=== PATIENT | female | born 2000 | race Caucasian/White ===

== ENCOUNTER 2020-02-10 10:58 | Emergency (ER) | payer OTHER, SELFPAY ==
--- NOTE | ~2020-02-10 | XR_ITS ---
EXAMINATION: XR shoulder LT min 2V, XR humerus LT DATE: 02/10/2020 12:06 INDICATION: Left shoulder and proximal humeral pain. TECHNIQUE: 1. AP internally and externally rotated, AP oblique externally rotated and transscapular Y views of t he left shoulder were obtained. 2. AP and lateral views of the left humerus were obtained on overlapping proximal and distal images. COMPARISON: None FINDINGS: Normal alignment. No fracture. The left glenohumeral, acromioclavicular and elbow joint spaces are n ormal. No cortical erosions or periosteal reaction. No suspicious lytic or blastic bone lesions. Soft tissues are unremarkable. No left elbow joint effusion. Left lung is clear. IMPRESSION: Negative left shoulder and humerus radiographs. Reviewed, dictated and finalized at location A. IMPRESSION: Negative left shoulder and humerus radiographs.
[2020-02-10 11:00] VITALS: BP 151/85; PULSE 84; RESP 18; TEMP 36.9; O2SAT 100
--- NOTE | 2020-02-10 11:21 | PC.NURSE ---
EDINSON Mondragon at bedside for assessment.
--- NOTE | 2020-02-10 11:32 | ED.UPPEXIN ---
HPI - Extremity Injury (Upper) General Chief Complaint: Extremity Injury, Upper <Kirsten Navarro PA-C - Last Filed: 02/10/20 12:18> Stated Complaint: left shoulder/elbow pain - fell tues <EMBER Lawrence Last Filed: 02/10/20 12:18> Time Seen by Provider: 02/10/20 11:18 <EMBER Lawrence Last Filed: 02/10/20 12:18> Source: patient <EMBER Lawrence Last Filed: 02/10/20 12:18> Mode of arrival: ambulatory <EMBER Lawrence Last Filed: 02/10/20 12:18> Limitations: no limitations <EMBER Lawrence Last Filed: 02/10/20 12:18> History of Present Illness HPI narrative: This is a 19-year-old female that presents the emergency department for an injury 2 days ago with left shoulder pain. Reports she slipped while at work and fell. Reports her left hand went into the [place] at work. Reports she was seen at [facility] for this and has follow-up in the burn clinic tomorrow. Reports she was so focused on the hand at the time that she did not realize the shoulder was also bothering her. Has continued to have pain in left shoulder so presents for evaluation. Denies hitting her head, loss of consciousness, decreased range of motion or numbness. <Kirsten Navarro PA-C - Last Filed: 02/10/20 12:18> Related Data Home Medications: Home Medications Medication Instructions Recorded Confirmed hydrocodone-acetaminophen 1 tablet PO Q4H PRN 02/10/20 naproxen 500 mg PO BID 02/10/20 oxycodone-acetaminophen 1 tablet PO Q4H PRN 02/10/20 silver sulfadiazine 02/10/20 <EMBER Lawrence Last Filed: 02/10/20 12:18> Allergies/Adverse Reactions: Allergies Allergy/AdvReac Type Severity Reaction Status Date / Time coconut Allergy Difficulty Verified 02/10/20 11:24 Breathing fluticasone Allergy Difficulty Verified 02/10/20 11:24 [From Advair Diskus] Breathing latex Allergy Hives Verified 02/10/20 11:24 salmeterol Allergy Difficulty Verified 02/10/20 11:24 [From Advair Diskus] Breathing <Kirsten Navarro PA-C - Last Filed: 02/10/20 12:18> Review of Systems Review of Systems: Narrative: CONSTITUTIONAL: Denies fever MUSCULOSKELETAL: Reports joint pain, and myalgia. <Kirsten Navarro PA-C - Last Filed: 02/10/20 12:18> All systems reviewed & are unremarkable except as noted in HPI and below <Kirsten Navarro PA-C - Last Filed: 02/10/20 12:18> PMFSH Past Medical History Medical History: Medical History (Updated 02/10/20 @ 12:18 by Kirsten Navarro PA-C) History of asthma <Kirsten Navarro PA-C - Last Filed: 02/10/20 12:18> Social History Social History: Social History (Updated 02/10/20 @ 11:32 by Kirsten Navarro PA-C) Smoking status: Current some day smoker Gender identity (if verbalized by the patient): Female <Kirsten Navarro PA-C - Last Filed: 02/10/20 12:18> Exam Narrative: Exam Narrative: GENERAL: Well-appearing, well-nourished, and in no acute distress. HEAD: Normocephalic, atraumatic. EYES: EOMI. CHEST: Clear to auscultation. No respiratory distress. No wheezes rales or rhonchi HEART: Regular rate and rhythm. No murmur heard. Normal peripheral pulses. EXTREMITIES: Normal range of motion. No edema. Left hand and forearm with bandage in place that is clean, dry and intact SKIN: Warm, dry, no rash. NEURO: No focal deficits. Alert and oriented x3. PSYCH: Normal mood and affect <Kirsten Navarro PA-C - Last Filed: 02/10/20 12:18> Course Vital Signs Vital signs: Vital Signs Temperature 36.9 C 02/10/20 11:00 Pulse Rate 84 02/10/20 11:00 Respiratory Rate 18 02/10/20 11:00 Blood Pressure 151/85 H 02/10/20 11:00 Pulse Oximetry 100 02/10/20 11:00 Temperature 36.9 C 02/10/20 11:00 Pulse Rate 67 02/10/20 12:27 Respiratory Rate 18 02/10/20 12:27 Blood Pressure 151/85 H 02/10/20 11:00 Pulse Oximetry 100 02/10/20 12:27 <Kirsten Navarro PA-C - Last Filed: 02/10/20
--- NOTE | 2020-02-10 12:05 | PC.NURSE ---
pt returned from xray at this time, no current needs expressed.
[2020-02-10 12:27] VITALS: PULSE 67; RESP 18; O2SAT 100
== END 2020-02-10 12:30 | disposition home or self-care (01) ==
PROVIDERS: Emergency Provider Emergency Medicine
DX: M25.512 Pain in left shoulder (principal); J45.909 Unspecified asthma, uncomplicated; F17.200 Nicotine dependence, unspecified, uncomplicated; W01.0XXA Fall on same level from slipping, tripping and stumbling without subsequent striking against object, initial encounter
CPT/HCPCS: 73030; 73060; 99283

== ENCOUNTER 2021-12-10 21:28 | Emergency (ER) | payer OTHER, SELFPAY ==
[2021-12-10 21:49] VITALS: BP 130/71; PULSE 104; RESP 16; TEMP 36.5; O2SAT 100
--- NOTE | 2021-12-10 23:24 | PC.NURSE ---
Pt approached triage desk and states she is going to leave. Pt ambulated out of ED with steady gait, in no obvious distress.
== END 2021-12-10 23:24 | disposition left against medical advice (07) ==
LOC: ANHED 23:42
DX: R50.9 Fever, unspecified (principal)
CPT/HCPCS: 99199

== ENCOUNTER 2022-09-19 12:25 | Emergency (ER) | payer OTHER, SELFPAY ==
--- NOTE | ~2022-09-19 | US_ITS ---
US right upper quadrant INDICATION: Nausea and vomiting PROCEDURE: Realtime right upper abdominal ultrasound. COMPARISON: No prior studies for comparison. FINDINGS: The pancreas is normal without focal mass or pancreatic ductal dilation. Liver echotexture is increased, consistent with fatty infiltration. There is normal directional flow in the portal ve in. The gallbladder is normal without stones, gallbladder wall thickening or pericholecystic fluid. Comm on bile duct measures 5 mm. No sonographic Pollack's sign. IMPRESSION: 1: Hepatic steatosis. Reviewed, dictated and finalized at location A. X UNIX SYSTEM ADMINISTRATOR IMPRESSION: 1: Hepatic steatosis.
--- NOTE | ~2022-09-19 | US_ITS ---
EXAMINATION: US OB <= 14 weeks fetus DATE: 09/19/2022 17:52 INDICATION: Evaluate for gestational dates. TECHNIQUE: Real-time transabdominal obstetric ultrasound. FINDINGS: No prior studies for comparison. The uterus measures 10 x 6.1 x 6.4 cm. There is an intrauterine gestational sac, with pole iden tified. The crown rump length measures 1.69 cm, which correlates with a estimated gestational age of 8 weeks 1 day. heart tones are identified measuring 167 BPM. The ovaries are within normal l imits, although evaluation for vascularity of the ovaries is limited. IMPRESSION: 1. SL IUP with an EGA of 8 weeks, 1 days (EDC by current ultrasound of 04/30/2023). Reviewed, dictated and finalized at location A. CTION CONTROL MANAGER IMPRESSION: 1. SL IUP with an EGA of 8 weeks, 1 days (EDC by current ultrasound of 3).
[2022-09-19 12:41] VITALS: BP 149/90; PULSE 95; RESP 14; TEMP 36.8; O2SAT 98
--- NOTE | 2022-09-19 14:26 | ED.NAVMDI ---
HPI - Nausea/Vomiting/Diarrhea General Chief complaint: Nausea/Vomiting/Diarrhea Stated complaint: -nausea Time Seen by Provider: 09/19/22 14:10 History of Present Illness HPI Narrative: Patient is a 22-year-old G3, P2 female who is currently about 7 weeks by LMP here for evaluation of nausea, vomiting over the past week. Patient states that she is unable to keep any p.o. down. Was prescribed doxylamine by her TRAFFIC LAW ATTORNEY without relief. Denies any abdominal pain, fevers or chills, vaginal bleeding, sudden gush of fluids, diarrhea or constipation. Denies history of previous with other pregnancies. Related Data Home Medications Medication Instructions Recorded Confirmed hydrocodone 5 mg-acetaminophen 325 1 tablet PO Q4H PRN Pain 02/10/20 mg tablet naproxen 500 mg tablet 500 mg PO BID 02/10/20 oxycodone-acetaminophen 5 mg-325 1 tablet PO Q4H PRN Pain 02/10/20 mg tablet silver sulfadiazine 02/10/20 Allergies Allergy/AdvReac Type Severity Reaction Status Date / Time coconut Allergy Difficulty Verified 09/19/22 12:26 Breathing fluticasone Allergy Difficulty Verified 09/19/22 12:26 [From Advair Diskus] Breathing latex Allergy Hives Verified 09/19/22 12:26 salmeterol Allergy Difficulty Verified 09/19/22 12:26 [From Advair Diskus] Breathing Review of Systems Review of Systems: Gen.: Denies fevers or chills Eyes: Denies eye pain or visual change ENT: Denies congestion Respiratory: Denies shortness of breath or cough CV: Denies chest pain or palpitations GI: Reports nausea and vomiting. denies burning, urgency, frequency or hematuria Musculoskeletal: Denies back pain or muscle pain Neuro: Denies numbness, tingling, weakness or focal weakness Skin: Denies rash Except as documented, all other systems reviewed and negative [facility] Past Medical History Medical History History of asthma Social History Social History (Updated 02/10/20 @ 11:32 by Kirsten Navarro PA-C) Smoking status: Current some day smoker Gender identity (if verbalized by the patient): Female Exam Narrative: APPEARANCE: Well appearing, no pain in distress, well-nourished. Head: Normocephalic and atraumatic. EYES: PERRLA/EOMI, conjunctivae clear NOSE: No nasal drainage EARS: External ear normal in appearance THROAT: Oropharynx is clear. Mucous membranes are moist. NECK: Supple. No adenopathy, no masses. RESPIRATORY: Airway patent, respirations nonlabored. Clear to auscultation bilaterally, no rales, rhonchi, wheezing. CARDIOVASCULAR: Regular rate and rhythm without murmurs, rubs, or gallops. ABDOMINAL: Normoactive bowel sounds. Soft, nontender, nondistended. No rebound tenderness or guarding. MUSCULOSKELETAL: Extremities are warm and well-perfused. Moves all extremities well. No edema. NEURO: Normal speech. No focal neurologic deficits. SKIN: Skin is warm and dry. No rashes. PSYCHIATRIC: Normal affect/mood.. Course Vital Signs Vital signs: Vital Signs Temperature 98.3 F 09/19/22 12:41 Pulse Rate 95 09/19/22 12:41 Respiratory Rate 14 09/19/22 12:41 Blood Pressure 149/90 H 09/19/22 12:41 Pulse Oximetry 98 09/19/22 12:41 Oxygen Delivery Room Air 09/19/22 12:41 Temperature 98.4 F 09/19/22 15:35 Pulse Rate 80 09/19/22 18:14 Respiratory Rate 17 09/19/22 18:14 Blood Pressure 123/85 09/19/22 18:14 Pulse Oximetry 100 09/19/22 18:14 Oxygen Delivery Room Air 09/19/22 12:41 MDM - Nausea/Vomiting/Diarrhea MDM Narrative Medical decision making narrative: 22-year-old female here for evaluation of nausea and vomiting over the past week, currently about 8 weeks by last menstrual cycle. She is nontoxic in appearance and has no abdominal tenderness on exam. heart tones were not detected at bedside but she does have a quant of 51,000. Pelvic ultrasound shows single live intrauterine gest
[2022-09-19 15:02] LABS: Appearance Urine Slightly Cloudy (Clear); Bilirubin Urine 1+ (Negative); Blood Urine Negative (Negative); Color Urine Yellow (Yellow); Glucose Urine UA Negative (Negative); Ketones Urine Negative (Negative); Leukocyte Esterase Ur Negative LEU/UL (Negative); Nitrate Urine Negative (Negative); Protein Urine Negative (Negative); Specific Grav Ur 1.025 (1.001-1.035); pH Urine 8.5 (5.0-9.0)
[2022-09-19 15:09] LABS: Bacteria Urine Trace /hpf; Mucus Urine Rare /lpf; Squamous Epithelial Cell Urine Many /hpf (Few)
[2022-09-19 15:10] LABS: Add Urine Microscopic? YES
[2022-09-19] MEDS: LACTATED RINGERS 1,000 ML 999 ML IV CONT ×2 (15:19→16:09)
[2022-09-19] MEDS: METOCLOPRAMIDE HCL INJ 10 MG/2 ML VIAL IV PUSH (15:20)
[2022-09-19 15:31] LABS: Basophils Absolute Auto 0.1 K/mm3 (0.0-0.1); Basophils Percent Auto 0.5 % (0.2-1.2); Eosinophils Absolute Auto 0.3 K/mm3 (0-0.3); Eosinophils Percent Auto 1.9 % (0-4.4); Hematocrit 40.1 % (37.0-47.0); Hemoglobin 12.5 g/dL (12.0-15.0); Immature Granulocyte Absolute 0.03 K/mm3 (0.00-0.031); Immature Granulocyte Percent A 0.2 % (0-0.5); Lymphocytes Absolute Auto 3.47 K/mm3 (0.9-3.2); Lymphocytes Percent Auto 25.1 % (18.3-44.2); Mean Corpuscular HGB Conc 31.2 g/dl (32-36); Mean Corpuscular Hemoglobin 25.8 pg (26-34); Mean Corpuscular Volume 82.9 fl (80-100); Mean Platelet Volume 10.9 fl (7.4-10.4); Monocytes Absolute Auto 0.8 K/mm3 (0.1-0.6); Monocytes Percent Auto 5.4 % (2.6-8.5); Neutrophils Absolute Auto 9.3 K/mm3 (1.3-6.7); Neutrophils Percent Auto 66.9 % (45.5-73.1); Platelet Count Result 328 k/mm3 (150-375); Red Blood Count 4.84 M/mm3 (4.2-5.4); Red Cell Distribution Width 15.2 % (11.5-14.5); White Blood Count 13.8 K/mm3 (4.5-10.0)
[2022-09-19 15:35] VITALS: BP 134/71; PULSE 88; RESP 15; TEMP 36.9; O2SAT 100
[2022-09-19 15:42] LABS: Alanine Aminotransferase 120 U/L (6-35); Albumin Level 4.6 g/dL (3.5-5.1); Alkaline Phosphatase 132 U/L (38-126); Anion Gap 4 mmol/L (8-16); Aspartate Amino Transferase 88 U/L (14-36); Bilirubin,Total 0.5 mg/dL (0.2-1.3); Blood Urea Nitrogen 9 mg/dL (7-17); Calcium 9.4 mg/dL (8.4-10.2); Carbon Dioxide 30 mmol/L (22-30); Chloride 100 mmol/L (98-107); Estimated CRCL calculation 172 ml/min; Estimated Glomerular Filt Rate > 60; Glucose 87 mg/dL (65-110); Sodium 134 mmol/L (137-145)
[2022-09-19 18:14] VITALS: BP 123/85; PULSE 80; RESP 17; O2SAT 100
== END 2022-09-19 18:21 | disposition home or self-care (01) ==
PROVIDERS: Emergency Provider Physician Assistant
DX: O99.611 Diseases of the digestive system complicating pregnancy, first trimester (principal); K76.0 Fatty (change of) liver, not elsewhere classified; O99.511 Diseases of the respiratory system complicating pregnancy, first trimester; J45.909 Unspecified asthma, uncomplicated; O99.331 Smoking (tobacco) complicating pregnancy, first trimester; F17.200 Nicotine dependence, unspecified, uncomplicated; Z3A.08 8 weeks gestation of pregnancy
CPT/HCPCS: 36415; 76705; 76801; 80053; 81001; 81025; 84702; 85025; 96361; 96374; 99284; J2765; J7120

== ENCOUNTER 2022-10-11 11:52 | Emergency (ER) | payer OTHER, SELFPAY ==
--- NOTE | ~2022-10-11 | US_ITS ---
Limited Abdominal Sonogram: Real-time sonographic imaging of the right upper quadrant was performed. Clinical History: Right upper quadrant pain Findings: The liver appears normal with no evidence of mass lesion or bile duct dilatation. Main por roscoe vein demonstrates normal direction of flow. The gallbladder is well distended, with possible mini mal sludge. No gallbladder wall thickening. The common bile duct measures 5 mm. The visualized pancr eas, aorta, and IVC are unremarkable. Impression: Possible minimal gallbladder sludge. Reviewed, dictated and finalized at location M. CLE UPHOLSTERER Impression: Possible minimal gallbladder sludge.
[2022-10-11 11:57] VITALS: BP 132/86; PULSE 92; RESP 18; TEMP 36.6; O2SAT 100
--- NOTE | 2022-10-11 13:15 | ED.ABDPAIN ---
HPI - Abdominal Pain General Chief Complaint: Abdominal Pain Stated Complaint: 11 weeks preg/ruq pain Time Seen by Provider: 10/11/22 12:26 History of Present Illness HPI narrative: Patient is a 22-year-old G3, P2 female at approximately 11 weeks gestation presenting with right upper quadrant pain. Patient states that for the last day she has had a stabbing pain in her right upper quadrant associated with vomiting. Patient states that she has had a lot of morning sickness with this but she has not been able to keep anything down for the last day. States that she was seen here a few weeks ago and told that she had gallstones and to come back if she had pain in this area. States that she had a small amount of diarrhea yesterday. Denies dysuria or hematuria, vaginal discharge or bleeding. Denies fevers, headache, chest pain, shortness of breath, cough. Related Data Home Medications Medication Instructions Recorded Confirmed hydrocodone 5 mg-acetaminophen 325 1 tablet PO Q4H PRN Pain 02/10/20 mg tablet naproxen 500 mg tablet 500 mg PO BID 02/10/20 oxycodone-acetaminophen 5 mg-325 1 tablet PO Q4H PRN Pain 02/10/20 mg tablet silver sulfadiazine 02/10/20 Allergies Allergy/AdvReac Type Severity Reaction Status Date / Time coconut Allergy Difficulty Verified 09/19/22 12:26 Breathing fluticasone Allergy Difficulty Verified 09/19/22 12:26 [From Advair Diskus] Breathing latex Allergy Hives Verified 09/19/22 12:26 salmeterol Allergy Difficulty Verified 09/19/22 12:26 [From Advair Diskus] Breathing Review of Systems Review of Systems: All systems reviewed & are unremarkable except as noted in HPI and below PMFSH Past Medical History Medical History History of asthma Social History Social History Smoking status: Current some day smoker Gender identity (if verbalized by the patient): Female Exam Narrative: GENERAL: Well-appearing, well-nourished, and in no acute distress. HEAD: Normocephalic, atraumatic. EYES: PERRLA and EOMI. ENT: Nares clear, no rhinorrhea or epistaxis. Mucous membranes moist. NECK: Supple. CHEST: Clear to auscultation. No respiratory distress. HEART: Regular rate and rhythm. ABDOMEN: Soft, mild right upper quadrant tenderness, no guarding or rebound EXTREMITIES: Normal range of motion. No edema. SKIN: Warm, dry, no rash. NEURO: No focal deficits. Alert and oriented x3. PSYCH: Normal mood and affect. Course Vital Signs Vital signs: Vital Signs Temperature 97.9 F 10/11/22 11:57 Pulse Rate 92 10/11/22 11:57 Respiratory Rate 18 10/11/22 11:57 Blood Pressure 132/86 10/11/22 11:57 Pulse Oximetry 100 10/11/22 11:57 Oxygen Delivery Room Air 10/11/22 11:57 Temperature 97.9 F 10/11/22 11:57 Pulse Rate 92 10/11/22 11:57 Respiratory Rate 18 10/11/22 11:57 Blood Pressure 132/86 10/11/22 11:57 Pulse Oximetry 100 10/11/22 11:57 Oxygen Delivery Room Air 10/11/22 11:57 MDM - Abdominal Pain MDM Narrative Medical decision making narrative: Patient is a 22-year-old female at 11 weeks gestation presenting with right upper quadrant pain and vomiting. Vitals within normal limits. Patient is nontoxic and in no acute distress. Exam is remarkable for mild right upper quadrant tenderness. Plan for labs, right upper quadrant ultrasound, IV Tylenol and fluids. Blood work with mild leukocytosis which is similar to prior levels. Blood work is otherwise unremarkable. Normal renal function and electrolytes. UA is contaminated. Patient denies any urinary symptoms. Right upper quadrant ultrasound shows no acute abnormalities. On reevaluation, the patient states that she feels improved. She is tolerating p.o. intake. Do not feel further imaging is warranted given the reassuring ultrasound and improvement in her sympto
[2022-10-11] MEDS: SODIUM CHLORIDE 0.9% IV 1,000 ML 999 ML IV CONT (13:47)
[2022-10-11] MEDS: ONDANSETRON INJ 4 MG/2 ML VIAL IV PUSH (13:49)
[2022-10-11 13:52] LABS: Basophils Percent Auto 0.3 % (0.2-1.2); Eosinophils Absolute Auto 0.1 K/mm3 (0-0.3); Eosinophils Percent Auto 0.4 % (0-4.4); Hematocrit 39.5 % (37.0-47.0); Hemoglobin 12.5 g/dL (12.0-15.0); Immature Granulocyte Absolute 0.04 K/mm3 (0.00-0.031); Immature Granulocyte Percent A 0.3 % (0-0.5); Lymphocytes Percent Auto 20.1 % (18.3-44.2); Mean Corpuscular HGB Conc 31.6 g/dl (32-36); Mean Corpuscular Hemoglobin 26.4 pg (26-34); Mean Corpuscular Volume 83.5 fl (80-100); Mean Platelet Volume 10.9 fl (7.4-10.4); Monocytes Absolute Auto 0.6 K/mm3 (0.1-0.6); Monocytes Percent Auto 4.7 % (2.6-8.5); Neutrophils Percent Auto 74.2 % (45.5-73.1); Platelet Count Result 237 k/mm3 (150-375); Red Blood Count 4.73 M/mm3 (4.2-5.4); Red Cell Distribution Width 15.7 % (11.5-14.5); White Blood Count 13.4 K/mm3 (4.5-10.0)
[2022-10-11 14:20] LABS: Appearance Urine Turbid (Clear); Bacteria Urine 1+ /hpf; Bilirubin Urine 1+ (Negative); Blood Urine Negative (Negative); Color Urine Dark Yellow (Yellow); Glucose Urine UA Negative (Negative); Ketones Urine 4+ mg/dL (Negative); Leukocyte Esterase Ur 1+ LEU/UL (Negative); Need Manual Microscopic Reviewed; Nitrate Urine Negative (Negative); Protein Urine 1+ mg/dL (Negative); Specific Grav Ur 1.032 (1.001-1.035); Squamous Epithelial Cell Urine Many /hpf (Few); pH Urine 5.5 (5.0-9.0)
[2022-10-11 14:34] LABS: Add Urine Microscopic? YES
[2022-10-11] MEDS: LACTATED RINGERS 1,000 ML 999 ML IV CONT (14:49)
[2022-10-11 15:33] LABS: Alanine Aminotransferase 40 U/L (6-35); Albumin Level 4.2 g/dL (3.5-5.1); Alkaline Phosphatase 140 U/L (38-126); Anion Gap 6 mmol/L (8-16); Aspartate Amino Transferase 32 U/L (14-36); Bilirubin,Total 0.8 mg/dL (0.2-1.3); Blood Urea Nitrogen 7 mg/dL (7-17); Carbon Dioxide 24 mmol/L (22-30); Chloride 104 mmol/L (98-107); Estimated Glomerular Filt Rate > 60; Glucose 94 mg/dL (65-110); Lipase 39 U/L (23-300); Potassium 3.8 mmol/L (3.4-5.0); Sodium 134 mmol/L (137-145)
== END 2022-10-11 17:10 | disposition home or self-care (01) ==
PROVIDERS: Emergency Provider Emergency Medicine
DX: O21.0 Mild hyperemesis gravidarum (principal); Z3A.11 11 weeks gestation of pregnancy; R10.11 Right upper quadrant pain
CPT/HCPCS: 36415; 76705; 80053; 81001; 81025; 83690; 85025; 87086; 96361; 96365; 96375; 99284; J0131; J2405; J7030; J7120

== ENCOUNTER 2022-11-24 11:32 | Emergency (ER) | payer OTHER, SELFPAY ==
[2022-11-24 11:49] VITALS: BP 146/79; PULSE 87; RESP 18; TEMP 37; O2SAT 100
--- NOTE | 2022-11-24 11:49 | PC.NURSE ---
in br to obtain ua spec.
--- NOTE | 2022-11-24 12:02 | ED.FEMALEGU ---
HPI - Female Genitourinary General Chief complaint: Urogenital-Female Stated complaint: uti Time Seen by Provider: 11/24/22 12:02 Source: patient Mode of arrival: ambulatory Limitations: no limitations History of Present Illness HPI Narrative: 22-year-old female presents with complaint of nausea and vomiting for 3 days. Patient is approximately 17 weeks. Reports that she has had some lower abdominal cramping, worse to right side. Began having low back pain 2 days ago. Assume that it was related to a urinary tract infection. States she has been drinking a lot of Dr. Post because is helping with nausea. Denies fever. Her OBGYN is [facility]. Reports that WBC has been elevated on her labs. Has had 2 ultrasounds of her gallbladder but both have been normal. This is patient's 3rd and she reports that it is the worst as far as nausea and vomiting. All systems reviewed and negative except as noted above. Review of Systems Review of Systems: CONSTITUTIONAL: Denies fever, chills, or sweats. EYES: Denies visual changes, redness, or discharge. ENT: Denies rhinorrhea, congestion, sore throat, or otalgia. CARDIOVASCULAR: Denies chest pain, palpitations, or edema. RESPIRATORY: Denies cough or dyspnea. GASTROINTESTINAL: Denies abdominal pain . Reports nausea, vomiting GENITOURINARY: Denies dysuria or hematuria. SKIN: Denies rash or itching. MUSCULOSKELETAL: Denies joint pain, or myalgia. reports low back pain. NEUROLOGIC: Denies headache, numbness, or weakness. PSYCHIATRIC: Denies anxiety or depression. All other systems reviewed are negative, except as documented in HPI. PMFSH Comments At time of signature, agree with nursing past medical, surgical, social and family history. There is no relevant family history pertinent to the presenting complaint. Exam Narrative: GENERAL: This is a well-nourished, well-developed patient, in no apparent distress. HEAD: normocephalic, atraumatic. EYES: PERRL. Sclera clear/white. Vision is grossly intact. EARS: External ears normal NOSE: External nose normal NECK: Neck supple, non-tender without lymphadenopathy, masses or thyromegaly. CARDIOVASCULAR: Regular rate and rhythm without murmurs, gallops, or rubs. RESPIRATORY: Clear to auscultation. Breath sounds equal bilaterally. No wheezes, rales, or rhonchi. SKIN: warm, Dry, intact with no suspicious lesions or rash, good texture and turgor. NEURO: awake, alert, and oriented to person, place and time. There were no obvious focal neurologic abnormalities. EXTREMITIES: No joint tenderness, effusion, or edema noted. Course Course Level of Care: Express Care Visit Vital Signs Vital signs: Vital Signs Temperature 37.0 C 11/24/22 11:49 Pulse Rate 87 11/24/22 11:49 Respiratory Rate 18 11/24/22 11:49 Blood Pressure 146/79 H 11/24/22 11:49 Pulse Oximetry 100 11/24/22 11:49 Oxygen Delivery Room Air 11/24/22 11:49 Temperature 37.0 C 11/24/22 11:49 Pulse Rate 87 11/24/22 11:49 Respiratory Rate 18 11/24/22 11:49 Blood Pressure 146/79 H 11/24/22 11:49 Pulse Oximetry 100 11/24/22 11:49 Oxygen Delivery Room Air 11/24/22 11:49 Reviewed Transfer Transfered to: [facility]: Other ( private car with ) Transfer rationale: nausea vomiting for 3 days. Urinalysis 4+ ketones, 2+ protein, uro bili 4+. Patient needs IV fluids. 17 weeks . Accepting physician: Ciara NEVES MDM - Female Genitourinary MDM Narrative Medical decision making narrative: Patient is aware of diagnosis, understands and agrees to treatment plan. Anticipatory guidance given. Patient agrees to follow-up as directed and is aware of reasons to seek care at the emergency department. Portions of this record may have been created with voice recognition software Lab Data Labs: Urine Glucose Trace Reference Range: Negative
== END 2022-11-24 12:13 | disposition short-term general hospital (02) ==
PROVIDERS: Emergency Provider Nurse Practitioner Family
DX: O21.9 Vomiting of pregnancy, unspecified (principal); Z3A.17 17 weeks gestation of pregnancy; O99.891 Other specified diseases and conditions complicating pregnancy; R82.4 Acetonuria
CPT/HCPCS: 81003; 99212; G0463

== ENCOUNTER 2022-11-24 12:29 | Emergency (ER) | payer OTHER, SELFPAY ==
[2022-11-24] VITALS (8 sets, daily range): BP systolic 111–142; BP diastolic 67–89; PULSE 68–94; RESP 16–20; TEMP 36.7; O2SAT 98–100
[2022-11-24] MEDS: SODIUM CHLORIDE 0.9% IV 1,000 ML 999 ML IV CONT (13:15)
[2022-11-24] MEDS: ONDANSETRON INJ 4 MG/2 ML VIAL IV PUSH (13:15)
[2022-11-24 13:21] LABS: Basophils Percent Auto 0.3 % (0.2-1.2); Eosinophils Absolute Auto 0.1 K/mm3 (0-0.3); Hematocrit 37.1 % (37.0-47.0); Immature Granulocyte Absolute 0.06 K/mm3 (0.00-0.031); Immature Granulocyte Percent A 0.5 % (0-0.5); Lymphocytes Absolute Auto 2.71 K/mm3 (0.9-3.2); Lymphocytes Percent Auto 22.4 % (18.3-44.2); Mean Corpuscular HGB Conc 32.3 g/dl (32-36); Mean Corpuscular Hemoglobin 27.1 pg (26-34); Mean Corpuscular Volume 83.9 fl (80-100); Mean Platelet Volume 11.2 fl (7.4-10.4); Monocytes Absolute Auto 0.6 K/mm3 (0.1-0.6); Neutrophils Absolute Auto 8.6 K/mm3 (1.3-6.7); Neutrophils Percent Auto 70.8 % (45.5-73.1); Platelet Count Result 234 k/mm3 (150-375); Red Blood Count 4.42 M/mm3 (4.2-5.4); Red Cell Distribution Width 15.2 % (11.5-14.5); White Blood Count 12.1 K/mm3 (4.5-10.0)
[2022-11-24 13:33] LABS: Alanine Aminotransferase 27 U/L (6-35); Alkaline Phosphatase 154 U/L (38-126); Anion Gap 7 mmol/L (8-16); Aspartate Amino Transferase 26 U/L (14-36); Bilirubin,Total 1.5 mg/dL (0.2-1.3); Blood Urea Nitrogen 6 mg/dL (7-17); Calcium 9.1 mg/dL (8.4-10.2); Carbon Dioxide 25 mmol/L (22-30); Chloride 104 mmol/L (98-107); Estimated CRCL calculation 204 ml/min; Estimated Glomerular Filt Rate > 60; Glucose 85 mg/dL (65-110); Potassium 3.9 mmol/L (3.4-5.0); Sodium 136 mmol/L (137-145)
[2022-11-24 14:31] LABS: Appearance Urine Turbid (Clear); Bacteria Urine 4+ /hpf; Bilirubin Urine 3+ (Negative); Blood Urine Negative (Negative); Color Urine Dark Yellow (Yellow); Glucose Urine UA Negative (Negative); Ketones Urine 4+ mg/dL (Negative); Leukocyte Esterase Ur 1+ LEU/UL (Negative); Nitrate Urine Positive (Negative); Non Pathogenic Casts 0-2; Protein Urine 2+ mg/dL (Negative); Squamous Epithelial Cell Urine Many /hpf (Few); WBC Urine 51-100 /hpf
[2022-11-24 14:34] LABS: Specific Grav Ur 1.036 (1.001-1.035)
[2022-11-24 14:36] LABS: Add Urine Microscopic? YES
--- NOTE | 2022-11-24 16:07 | ED.NAVMDI ---
HPI - Nausea/Vomiting/Diarrhea General Chief complaint: Nausea/Vomiting/Diarrhea Stated complaint: vomiting Time Seen by Provider: 11/24/22 12:52 History of Present Illness HPI Narrative: Patient is a 22-year-old female who presents ER with nausea and vomiting. Ongoing for the last days. Associate with low backache. Denies urinary frequency urgency or dysuria. No vaginal bleeding. She is currently 16 weeks gestation[address] states Dr[address] Meera Singh. Related Data Allergies Allergy/AdvReac Type Severity Reaction Status Date / Time coconut Allergy Other Verified 11/24/22 12:30 latex Allergy Other Verified 11/24/22 12:30 Review of Systems Constitutional: Constitutional: Denies chills and Denies fever(s) Gastrointestinal: Gastrointestinal: Denies abdominal pain, Reports nausea and Reports vomiting Genitourinary: Genitourinary: Denies hematuria, Denies nocturia and Denies dysuria Musculoskeletal: Musculoskeletal: Reports back pain, Denies arthralgias and Denies joint swelling PMF Past Medical History Medical History (Updated 11/24/22 @ 16:17 by Koffi Avila MD) Healthy female adult Surgical History Surgical History (Updated 11/24/22 @ 16:17 by Koffi Avila MD) No pertinent past surgical history Exam Narrative: GENERAL: Well-appearing, morbidly obese, and in no acute distress. HEAD: Normocephalic, atraumatic. ENT: Mucous membranes moist. CHEST: Clear to auscultation. No respiratory distress. HEART: Regular rate and rhythm. Normal peripheral pulses. ABDOMEN: Soft, nontender, nondistended. EXTREMITIES: Normal range of motion. No edema. SKIN: Warm, dry, no rash. NEURO: Alert and oriented x3. PSYCH: Normal mood and affect. Course Course Emergency Course: Patient resting comfortably. Informed of results. Feels improved with fluids and antiemetics. Will discharge with antibiotics and Zofran. Vital Signs Vital signs: Vital Signs Temperature 98.0 F 11/24/22 12:44 Pulse Rate 84 11/24/22 12:44 Respiratory Rate 16 11/24/22 12:44 Blood Pressure 127/75 11/24/22 12:44 Pulse Oximetry 100 11/24/22 12:44 Oxygen Delivery Room Air 11/24/22 12:44 Temperature 98.0 F 11/24/22 12:44 Pulse Rate 78 04/23/23 14:02 Respiratory Rate 18 11/24/22 14:02 Blood Pressure 128/89 11/24/22 14:02 Pulse Oximetry 99 11/24/22 14:02 Oxygen Delivery Room Air 11/24/22 12:44 MDM - Nausea/Vomiting/Diarrhea Lab Data 11/24/22 13:15 11/24/22 13:15 Labs: Lab Results 11/24/22 11/24/22 11/24/22 Range/Units 13:15 13:15 14:20 WBC 12.1 H (4.5-10.0) K/mm3 RBC 4.42 (4.2-5.4) M/mm3 Hgb 12.0 (12.0-15.0) g/dL Hct 37.1 (37.0-47.0) % MCV 83.9 (80-100) fl MCH 27.1 (26-34) pg MCHC 32.3 (32-36) g/dl RDW 15.2 H (11.5-14.5) % Plt Count 234 (150-375) k/mm3 MPV 11.2 H (7.4-10.4) fl Immature Gran % (Auto) 0.5 (0-0.5) % Neut % (Auto) 70.8 (45.5-73.1) % Lymph % (Auto) 22.4 (18.3-44.2) % Mcmullen % (Auto) 5.0 (2.6-8.5) % Eos % (Auto) 1.0 (0-4.4) % Baso % (Auto) 0.3 (0.2-1.2) % Lymph # (Auto) 2.71 (0.9-3.2) K/mm3 Mcmullen # (Auto) 0.6 (0.1-0.6) K/mm3 Eos # (Auto) 0.1 (0-0.3) K/mm3 Baso # (Auto) 0.0 (0.0-0.1) K/mm3 Abs Immat Gran (auto) 0.06 H (0.00-0.031) K/mm3 Absolute Neuts (auto) 8.6 H (1.3-6.7) K/mm3 Absolute Nucleated RBC 0.0 (0.0-0.012) K/mm3 Nucleated RBC % 0.0 (0.0-0.2) % Sodium 136 L (137-145) mmol/L Potassium 3.9 (3.4-5.0) mmol/L Chloride 104 (98-107) mmol/L Carbon Dioxide 25 (22-30) mmol/L Anion Gap 7 L (8-16) mmol/L BUN 6 L (7-17) mg/dL Creatinine 0.50 L (0.7-1.0) mg/dL Estim Creat Clear Calc 204 ml/min Estimated GFR > 60 (59 - ) Glucose 85 (65-110) mg/dL Calcium 9.1 (8.4-10.2) mg/dL Total Bilirubin 1.5 H (0.2-1.3) mg/dL AST 26 (14-36) U/L ALT 27 (6-35) U/L Alkaline Phosp
== END 2022-11-24 16:39 | disposition home or self-care (01) ==
PROVIDERS: Emergency Provider Emergency Medicine
DX: N39.0 Urinary tract infection, site not specified (principal); R11.2 Nausea with vomiting, unspecified
CPT/HCPCS: 36415; 80053; 81001; 81003; 85025; 87086; 87088; 96361; 96374; 99284; J2405; J7030

== ENCOUNTER 2023-03-10 10:17 | Outpatient (RCR) | payer OTHER, SELFPAY ==
[2023-03-10 11:08] VITALS: BP 109/40; PULSE 92
== END 2023-05-14 11:46 | disposition home or self-care (01) ==
LOC: ANHOBOP 10:17
PROVIDERS: Visit Provider Obstetrics & Gynecology
DX: O36.8130 Decreased fetal movements, third trimester, not applicable or unspecified (principal); Z3A.32 32 weeks gestation of pregnancy
CPT/HCPCS: 59025

== ENCOUNTER 2023-04-24 06:44 | Inpatient (IN) | payer OTHER, SELFPAY ==
[2023-04-24] VITALS (218 sets, daily range): BP systolic 84–148; BP diastolic 37–104; PULSE 69–164; TEMP 35.6–36.6; O2SAT 86–100; BMI 56.7
--- NOTE | 2023-04-24 07:04 | PM.IMHP ---
H&P: HPI History of Present Illness Date/Time: 04/24/23 07:04 Chief Complaint: Induction of labor at term Narrative: 23-year-old 3 para 2 whose last menstrual period was 08/14/2022, EDC is 04/30/2023, confirmed by 11 week ultrasound presents at 39 and half weeks gestation for induction of labor. Her has been unremarkable. She is negative for group B strep. The cervix is favorable PMFSH Past Medical History Medical History Healthy female adult History of asthma Surgical History Surgical History No pertinent past surgical history Family History Family History Other Cancer Diabetes mellitus Social History Social History Smoking status: Current some day smoker Substance use: current Gender identity (if verbalized by the patient): Female Spiritual care concerns: No Meds Home Medications and Allergies Home Medications Medication Instructions Recorded Confirmed Type ondansetron 4 mg disintegrating 4 mg PO Q6H PRN nausea and 11/24/22 Rx tablet vomiting #10 tabs vits no.126-ferrous fum 1 tablet PO DAILY 04/23/23 04/23/23 History 28 mg iron-folic acid 800 mcg tablet (Classic ) Allergies Allergy/AdvReac Type Severity Reaction Status Date / Time coconut Allergy Other Verified 04/23/23 12:40 fluticasone Allergy Difficulty Verified 04/23/23 12:40 [From Advair Diskus] Breathing latex Allergy Other Verified 04/23/23 12:40 salmeterol Allergy Difficulty Verified 04/23/23 12:40 [From Advair Diskus] Breathing Exam Const: General: cooperative, healthy appearing and comfortable Nutritional Appearance: obese Orientation/consciousness: oriented to person, oriented to place and oriented to time HENMT: Head: normal to inspection Resp: Effort & Inspection: normal respiratory effort Cardio: Rate: regular rate Rhythm: regular rhythm Heart sounds: S1 normal heart sound present and S2 normal heart sound present GI: Inspection: normal to inspection ( gravid soft uterus) Auscultation: normal bowel sounds : External Female Exam: normal external appearance Speculum Exam - Vagina: normal appearance of the vagina Speculum Exam - Cervix: normal appearance of the cervix ( . FHTs were reassuring) Assessment and Plan Assessment and plan (1) Term : Code(s): Z34.90 - Encounter for supervision of normal , unspecified, unspecified trimester Status: Acute Plan medical induction of labor. Spontaneous vaginal delivery expected. She has an epidural candidate
--- NOTE | 2023-04-24 07:08 | LDADM ---
This patient, Linda Wang, was admitted to Labor/Delivery/Recovery 102 on 04/24/23 at 06:44. Plans for labor, pain management and were discussed with patient. Patient/family oriented to hospital policies and general routines including ID bracelet, bed and alarms, visiting hours, pain management, procedures, bathroom and other care routines, personal items, smoking policy, room service/diet and guest tray routines, security routines, and visiting hours. Patient/Family are encouraged to report perceived risks to care and to ask questions if they do not understand what they are told or what they should do. See OBIX for further documentation.
--- NOTE | 2023-04-24 07:19 | PM.OBPNLAB ---
Pain Control Date/time seen: 04/24/23 07:19 Pain control: tolerating well Pelvic Exam Dilation (cm): 3 Effacement (%): 50 station: -2 Comments: Attempted AROM with no fluid. IUPC placed. FHTs reassuring
[2023-04-24] MEDS: LACTATED RINGERS 1,000 ML 125 ML IV CONT ×3 (07:51→23:26)
[2023-04-24] MEDS: OXYTOCIN 30 UNITS/NS 500 ML 30 UNITS/500 ML BAG IV CONT (08:00)
[2023-04-24 08:19] LABS: Basophils Percent Auto 0.4 % (0.2-1.2); Eosinophils Absolute Auto 0.2 K/mm3 (0-0.3); Eosinophils Percent Auto 1.8 % (0-4.4); Hemoglobin 9.5 g/dL (12.0-15.0); Immature Granulocyte Absolute 0.03 K/mm3 (0.00-0.031); Immature Granulocyte Percent A 0.3 % (0-0.5); Lymphocytes Absolute Auto 2.54 K/mm3 (0.9-3.2); Lymphocytes Percent Auto 22.7 % (18.3-44.2); Mean Corpuscular HGB Conc 30.6 g/dl (32-36); Mean Corpuscular Hemoglobin 24.7 pg (26-34); Mean Corpuscular Volume 80.7 fl (80-100); Monocytes Absolute Auto 0.6 K/mm3 (0.1-0.6); Monocytes Percent Auto 5.5 % (2.6-8.5); Neutrophils Absolute Auto 7.8 K/mm3 (1.3-6.7); Neutrophils Percent Auto 69.3 % (45.5-73.1); Platelet Count Result 249 k/mm3 (150-375); Red Blood Count 3.84 M/mm3 (4.2-5.4); Red Cell Distribution Width 14.9 % (11.5-14.5); White Blood Count 11.2 K/mm3 (4.5-10.0)
--- NOTE | 2023-04-24 13:00 | PM.OBPNLAB ---
Pain Control Date/time seen: 04/24/23 13:00 Pain control: tolerating well Pelvic Exam Dilation (cm): 3 Effacement (%): 50 station: -2
[2023-04-24] MEDS: SODIUM CHLORIDE 0.9% IV 300 ML 600 ML I-UTERINE (15:12)
[2023-04-24 15:39] LABS: Rapid Plasma Reagin Non-Reactive (NonReactive)
--- NOTE | 2023-04-24 15:55 | PM.OBPNLAB ---
Pain Control Date/time seen: 04/24/23 15:55 Pain control: tolerating well Pelvic Exam Dilation (cm): 3 Effacement (%): 50 station: -2 Amniotic membrane status: Leaking Contractions Monitor mode: Internal
--- NOTE | 2023-04-24 19:42 | WPDANESEPPF ---
Anes - Initial Pre Proc Eval Procedure: Labor epidural Date/Time: 04/24/23 19:42 Surgeon: Kareem Singh MD Pre Op Diagnosis: labor pain Pre Op Diagnosis: iol Patient Data Age: 23 Gender: F Height: 1.63 m Weight: 150 kg Last Vital Signs Temp 36.1 C L 04/24/23 18:29 Pulse 89 04/24/23 19:32 BP 148/87 H 04/24/23 19:32 Pulse Ox 99 04/24/23 19:41 O2 Del Method Room Air 04/24/23 07:06 Allergies Allergy/AdvReac Type Severity Reaction Status Date / Time coconut Allergy Other Verified 04/23/23 12:40 fluticasone Allergy Difficulty Verified 04/23/23 12:40 [From Advair Diskus] Breathing latex Allergy Other Verified 04/23/23 12:40 salmeterol Allergy Difficulty Verified 04/23/23 12:40 [From Advair Diskus] Breathing Home Medications Medication Instructions Recorded Confirmed Type ondansetron 4 mg disintegrating 4 mg PO Q6H PRN nausea and 11/24/22 04/24/23 Rx tablet vomiting #10 tabs vits no.126-ferrous fum 1 tablet PO DAILY 04/23/23 04/23/23 History 28 mg iron-folic acid 800 mcg tablet (Classic ) Laboratory Tests 04/24/23 06:57 WBC 11.2 H K/mm3 (4.5-10.0) RBC 3.84 L M/mm3 (4.2-5.4) Hgb 9.5 L g/dL (12.0-15.0) Hct 31.0 L % (37.0-47.0) MCV 80.7 fl (80-100) MCH 24.7 L pg (26-34) MCHC 30.6 L g/dl (32-36) RDW 14.9 H % (11.5-14.5) Plt Count 249 k/mm3 (150-375) MPV 11.0 H fl (7.4-10.4) Immature Gran % (Auto) 0.3 % (0-0.5) Neut % (Auto) 69.3 % (45.5-73.1) Lymph % (Auto) 22.7 % (18.3-44.2) [place] % (Auto) 5.5 % (2.6-8.5) Eos % (Auto) 1.8 % (0-4.4) Baso % (Auto) 0.4 % (0.2-1.2) Lymph # (Auto) 2.54 K/mm3 (0.9-3.2) [place] # (Auto) 0.6 K/mm3 (0.1-0.6) Eos # (Auto) 0.2 K/mm3 (0-0.3) Baso # (Auto) 0.0 K/mm3 (0.0-0.1) Abs Immat Gran (auto) 0.03 K/mm3 (0.00-0.031) Absolute Neuts (auto) 7.8 H K/mm3 (1.3-6.7) Absolute Nucleated RBC 0.0 K/mm3 (0.0-0.012) Nucleated RBC % 0.0 % (0.0-0.2) RPR Non-reactive (NonReactive) Blood Type O Positive Antibody Screen Negative Patient hx anesthesia problems: none Family hx anesthesia problems: none Results Review: All pre-operative results and documents have been reviewed as part of the pre-operative evaluation. [facility] Past Medical History Medical History Healthy female adult History of asthma Surgical History Surgical History No pertinent past surgical history Family History Family History Other Cancer Diabetes mellitus Social History Social History Smoking status: Former smoker Tobacco type: cigarettes Second hand tobacco smoke exposure: No Substance use: current Lack of Transportation: No Lack of Food: Never True Current Housing: I Have Housing Concerned About Future Housing: No Difficulty Paying Gas/Electric Bills: No Difficulty Paying for Meds: No Currently Unemployed: No Education: Don't Know Difficulty w/ Childcare or Family Care: No Gender identity (if verbalized by the patient): Female Spiritual care concerns: No Anes - Eval Final PreProcedure Day of Procedure 04/24/23 19:42 Patient weight: morbidly obese Heart: regular rate and rhythm Neurological: alert and oriented ASA classification: III Anesthesia type and monitoring: regional epidural and standard monitoring Results Review: All pre-operative results and documents have been reviewed as part of the pre-operative evaluation. Informed Consent: The patient's anesthetic plan and its attendant risks and benefits were discussed with the patient/family/POA. Questions were solicited and answers provided to the satisfaction
[2023-04-25] VITALS (160 sets, daily range): BP systolic 89–139; BP diastolic 47–106; PULSE 70–123; RESP 12–18; TEMP 35.7–36.9; O2SAT 96–100
[2023-04-25] MEDS: AMPICILLIN 2 GM/NS 100 ML 2 GM/100 ML BAG IVPB (01:20)
[2023-04-25] MEDS: ONDANSETRON INJ 4 MG/2 ML VIAL IV PUSH ×2 (01:31→10:50)
[2023-04-25] MEDS: AMPICILLIN 1 GM/NS 50 ML 1 GM/50 ML BAG IVPB ×2 (05:20→09:26)
--- NOTE | 2023-04-25 06:44 | PM.OBPNLAB ---
Pain Control Date/time seen: 04/25/23 06:44 Pain control: tolerating well Pelvic Exam Dilation (cm): 3 Effacement (%): 50 station: -2 Amniotic membrane status: Leaking Contractions Monitor mode: Internal
[2023-04-25] MEDS: OXYTOCIN 30 UNITS/NS 500 ML 30 UNITS/500 ML BAG IV CONT (07:12)
[2023-04-25] MEDS: LACTATED RINGERS 1,000 ML 125 ML IV CONT (08:13)
[2023-04-25] MEDS: SODIUM CHLORIDE 0.9% IV 300 ML 600 ML I-UTERINE (09:39)
--- NOTE | 2023-04-25 10:09 | PM.OBPNLAB ---
Pain Control Date/time seen: 04/25/23 10:09 Pain control: tolerating well Comments: Now having recurrent variable decelerations despite resuscitative measures. In light of her lack of change patient is offered low-transverse section. Risks and benefits were reviewed Pelvic Exam Dilation (cm): 3 Effacement (%): 50 station: -2 Amniotic membrane status: Leaking Contractions Monitor mode: Internal
--- NOTE | 2023-04-25 10:09 | WPDHPUPDATE1 ---
History and Physical Update Update Date/Time: 04/25/23 10:09 History and Physical has been reviewed, including an updated exam of the patient. There are NO changes in the patient's condition. Risks, benefits, and alternatives have been discussed and questions answered. Patient agrees to proceed with procedure.
--- NOTE | 2023-04-25 10:15 | P.PNAN_ITS ---
Anes - Eval Final PreProcedure Day of Procedure 04/25/23 10:15 Patient weight: super morbidly obese Heart: regular rate and rhythm Lungs: clear to auscultation Airway: Mallampati scale class II Neurological: alert and oriented Last oral intake: >/= 8 hours ASA classification: III Emergent: no Anesthetic plan: proceed Anesthesia type and monitoring: regional spinal and standard monitoring Results Review: All pre-operative results and documents have been reviewed as part of the pre- operative evaluation. Informed Consent: The patient's anesthetic plan and its attendant risks and benefits were di scussed with the patient/family/POA. Questions were solicited and answers provided to the satisfaction of the patient/family/POA.
[2023-04-25] MEDS: ceFAZolin 3 GM/D5W 100 ML 100 ML IVPB (10:25)
[2023-04-25] MEDS: KETOROLAC 30 MG/ML VIAL (*BKC) IV PUSH (11:00)
[2023-04-25] MEDS: AZITHROMYCIN 500 MG/NS 250 ML 500 MG/250 ML BAG 250 MG IVPB (11:00)
--- NOTE | 2023-04-25 11:26 | W.PM.PROC2 ---
Procedure Note - Detailed Date of Procedure 04/25/23 Pre-op Diagnosis iol/ failed to progress/ intolerance to labor Post-op Diagnosis Same Procedure Performed low-transverse section Surgeon Kareem Singh MD Anesthesia Spinal Indications a 23-year-old female who failed induction. She had IUPC and despite contractions failed to change past 3.5cm. Baby began to have continuous decelerations and decision was made for section. Findings The male 7lb 4oz Apgars 9 and 9 at 1 and 5minutes respectively Description of Procedure patient was taken back prepped draped in the normal sterile fashion placed in the supine position. Under excellent spinal anesthetic the abdomen was entered in Pfannenstiel fashion progressive layers to fascia. Fascia incised midline carried no predominant fashion bilaterally. Underlying muscles sharply dissected. Parietal peritoneum 0 by Giulia clamps and by sharp dissection carried superiorly and inferiorly to the dome of the bladder. Bladder blade placed bladder flap formed. Bladder blade returned. A low-transverse incision made head delivered in the ARIES position the head was noted be somewhat Blayne in clinic. Anterior posterior shoulder delivered spontaneously. Cord clamped to cut and paste in the warmer given Apgars of 9 [id number]. Cord blood was drawn. Placenta delivered intact manually. Uterus delivered from the abdomen wrapped in a moist towel. After assuring no membranes or debris remained in the uterus, the uterus closed continuous running 0 Vicryl from lateral edge to lateral edge followed by 2nd imbricating running locking 0 Vicryl from lateral edge to lateral edge. Hemostasis was assured. Ovaries and tubes appeared within normal limits and the uterus returned the abdomen. The hysterotomy incision inspected 1 last time noted be hemostatic. Laps removed and accounted for. Fascia closed with continuous running 0 Vicryl from lateral edge to the lead. Irrigation subcutaneous layer the skin closed with 4 Monocryl and glue. QBL was 625. All sponge, needle, instrument counts were correct. Mom and baby doing fine at the time of dictation. Cut Estimated Blood Loss 625 Drains No Packing No Pathology None sent Complications No immediate complications Condition Stable Disposition PACU
--- NOTE | 2023-04-25 14:00 | OBPPTRN ---
Patient transferred to post room # 280 via stretcher. Support person present. Oriented to unit, room, information board, rooming in, admission packet and security measures. Patient verbalizes understanding.
[2023-04-25] MEDS: DEXTROSE 5%/0.45% SOD CHL 1,000 ML 125 ML IV CONT (17:22)
[2023-04-26] MEDS: IBUPROFEN 600 MG TABLET PO ×2 (03:28→15:45)
[2023-04-26 03:30] VITALS: BP 152/75; PULSE 83; RESP 20; TEMP 36.8
[2023-04-26 04:38] LABS: Basophils Percent Auto 0.2 % (0.2-1.2); Eosinophils Absolute Auto 0.1 K/mm3 (0-0.3); Eosinophils Percent Auto 0.8 % (0-4.4); Hematocrit 29.5 % (37.0-47.0); Hemoglobin 8.9 g/dL (12.0-15.0); Immature Granulocyte Absolute 0.06 K/mm3 (0.00-0.031); Immature Granulocyte Percent A 0.4 % (0-0.5); Lymphocytes Percent Auto 14.7 % (18.3-44.2); Mean Corpuscular HGB Conc 30.2 g/dl (32-36); Mean Corpuscular Hemoglobin 24.7 pg (26-34); Mean Corpuscular Volume 81.9 fl (80-100); Mean Platelet Volume 11.7 fl (7.4-10.4); Monocytes Percent Auto 6.3 % (2.6-8.5); Neutrophils Absolute Auto 12.1 K/mm3 (1.3-6.7); Neutrophils Percent Auto 77.6 % (45.5-73.1); Platelet Count Result 223 k/mm3 (150-375); Red Cell Distribution Width 15.1 % (11.5-14.5); White Blood Count 15.6 K/mm3 (4.5-10.0)
--- NOTE | 2023-04-26 06:29 | P.DS_ITS ---
DS: Admitting Diagnosis Discharge Date 04/27/2023 Admitting Diagnosis term DS: Discharge Diagnosis Discharge Diagnosis (1) Term : Code(s): Z34.90 - Encounter for supervision of normal , unspecified, unspecified trimester Status: Acute DS: Summary Hospital Course Reason for hospitalization: patient was admitted for induction of labor on 04/25/2023. She underwent low- transverse section on 04/26/2023. Her hospital course was unremarkable. She remained afebrile. She was up, voiding without difficulty, eating regular diet, ambulating, and generous out complaints. Hospital Course: See above Time Spent with Patient Time attestation: Total time spent providing and/or coordinating discharge services: Exam Const: General: cooperative, healthy appearing and comfortable Orientation/consciousness: oriented to person, oriented to place and oriented to time HENMT: Head: normal to inspection Resp: Effort & Inspection: normal respiratory effort Cardio: Rate: regular rate Rhythm: regular rhythm Heart sounds: S1 normal heart sound present and S2 normal heart sound present GI: Inspection: normal to inspection and incision ( wound clean dry and intact) DS: Data Data Completed and Pending Labs on day of discharge: Labs from last 24 hours 04/26/23 03:37 WBC 15.6 H RBC 3.60 L Hgb 8.9 L Hct 29.5 L MCV 81.9 MCH 24.7 L MCHC 30.2 L RDW 15.1 H Plt Count 223 MPV 11.7 H Immature Gran % (Auto) 0.4 Neut % (Auto) 77.6 H Lymph % (Auto) 14.7 L [place] % (Auto) 6.3 Eos % (Auto) 0.8 Baso % (Auto) 0.2 Lymph # (Auto) 2.30 [place] # (Auto) 1.0 H Eos # (Auto) 0.1 Baso # (Auto) 0.0 Abs Immat Gran (auto) 0.06 H Absolute Neuts (auto) 12.1 H Absolute Nucleated RBC 0.0 Nucleated RBC % 0.0 Discharge Plan Discharge Attending physician on discharge: Kareem Covarrubias Discharging Clinician: Kareem Covarrubias Patient Disposition: Home, Self-Care Activity: may shower and pelvic rest Diet: heart healthy Wound Care Instructions: follow printed instructions Patient Instructions: Antibiotic Form Stand Alone Forms: General Discharge Information Follow-up/Referrals: Kareem Covarrubias MD [Physician] - Discharge Medications: New hydrocodone-acetaminophen 5-325 mg tablet 1 tablet PO Q4H PRN (Reason: pain) Qty: 30 0RF Continued ondansetron 4 mg tablet,disintegrating 4 mg PO Q6H PRN (Reason: nausea and vomiting) Qty: 10 0RF Classic 28 mg iron- 800 mcg Tablet 1 tablet PO DAILY Date of admission: 04/24/23 06:44 Primary Care Provider: PHYSICIAN,HOME STAGING SPECIALIST Admitting Provider: Kareem Covarrubias Attending physician on admission: Kareem Covarrubias Condition: Stable
--- NOTE | 2023-04-26 06:36 | PM.OBPNVD ---
OB - PN: Subj Subjective Date/time seen: 04/26/23 06:36 Patient comments: no complaints and pain well controlled baby status: doing well and nursing well OB - PN: Obj Data Labs 04/26/23 03:37 Labs: Laboratory Results - last 24 hr 04/26/23 03:37 WBC 15.6 H RBC 3.60 L Hgb 8.9 L Hct 29.5 L MCV 81.9 MCH 24.7 L MCHC 30.2 L RDW 15.1 H Plt Count 223 MPV 11.7 H Immature Gran % (Auto) 0.4 Neut % (Auto) 77.6 H Lymph % (Auto) 14.7 L [place] % (Auto) 6.3 Eos % (Auto) 0.8 Baso % (Auto) 0.2 Lymph # (Auto) 2.30 [place] # (Auto) 1.0 H Eos # (Auto) 0.1 Baso # (Auto) 0.0 Abs Immat Gran (auto) 0.06 H Absolute Neuts (auto) 12.1 H Absolute Nucleated RBC 0.0 Nucleated RBC % 0.0 OB - PN A/P Plan day: 1 Plan: routine care Time Spent With Patient Time: Total time spent is greater than 50% in coordination of care (as documented) at patient's floor/unit and/or counseling patient: Time with patient: less than 15 minutes Exam Const: General: cooperative, healthy appearing and comfortable Orientation/consciousness: oriented to person, oriented to place and oriented to time HENMT: Head: normal to inspection Resp: Effort & Inspection: normal respiratory effort Cardio: Rate: regular rate Rhythm: regular rhythm Heart sounds: S1 normal heart sound present and S2 normal heart sound present GI: Inspection: normal to inspection and incision ( clean dry and intact) Auscultation: normal bowel sounds
[2023-04-26 08:30] VITALS: BP 128/86; PULSE 86; RESP 18; TEMP 36.6
[2023-04-26] MEDS: MULTIVIT/MIN/PREN/FOL AC/IRON TABLET 1 TAB PO (10:17)
[2023-04-26] MEDS: DOCUSATE SODIUM 100 MG CAPSULE PO ×2 (10:17→15:45)
[2023-04-26] MEDS: POLYSACCHARIDE IRON COMPLEX 150 MG CAPSULE PO ×2 (10:17→15:45)
--- NOTE | 2023-04-26 12:55 | WPDANLDPN2 ---
Anes-Prog Note L&D Date/Time: 04/26/23 12:55 Comfortable throughout: section Neuraxial method: spinal Epidural/Spinal procedure site: clean & non-tender Neuro status: Neuro function grossly intact. Cardiovascular status: normal Respiratory status: normal Airway patency: baseline Mental status: baseline Post-Op hydration status: normal Vital Signs: Last Vital Signs Temp 97.8 F 04/26/23 08:30 Pulse 86 04/26/23 08:30 Resp 18 04/26/23 08:30 BP 128/86 04/26/23 08:30 Pulse Ox 100 04/25/23 14:10 O2 Del Method Room Air 04/25/23 13:35 Pain score (VAS): 0 I/O: Intake & Output 04/25/23 04/26/23 04/26/23 23:59 07:59 15:59 Intake Total 2150 1000 Output Total 1000 850 Balance 1150 150 Post-procedural complaints: none Patient feedback: Patient satisfied with anesthetic care.
--- NOTE | 2023-04-26 12:56 | WPDANLDNPN2 ---
Anes-Prog Note L&D-Neuraxial Date/Time: 04/26/23 12:56 Neuraxial medications: intrathecal PF morphine Opiod-related complaints: none Patient feedback: Patient satisfied with post-operative pain management.
[2023-04-26 20:25] VITALS: BP 130/78; PULSE 103; RESP 20; TEMP 36.8
[2023-04-27] MEDS: IBUPROFEN 600 MG TABLET PO (00:36)
--- NOTE | 2023-04-27 06:16 | PM.OBPNVD ---
OB - PN: Subj Subjective Date/time seen: 04/27/23 06:16 Patient comments: no complaints and pain well controlled baby status: doing well and nursing well OB - PN: Obj Data Labs 04/26/23 03:37 OB - PN A/P Plan day: 2 Plan: routine care, discharge home and follow up 6 weeks (4) Time Spent With Patient Time: Total time spent is greater than 50% in coordination of care (as documented) at patient's floor/unit and/or counseling patient: Time with patient: less than 15 minutes Exam Const: General: cooperative, healthy appearing and comfortable Orientation/consciousness: oriented to person, oriented to place and oriented to time HENMT: Head: normal to inspection Resp: Effort & Inspection: normal respiratory effort Cardio: Rate: regular rate Rhythm: regular rhythm Heart sounds: S1 normal heart sound present and S2 normal heart sound present GI: Inspection: normal to inspection and incision (cdi)
[2023-04-27 10:00] VITALS: BP 123/90; PULSE 83; RESP 18; TEMP 36.6
[2023-04-27] MEDS: DOCUSATE SODIUM 100 MG CAPSULE PO (11:40)
[2023-04-27] MEDS: MEASLES,MUMPS,RUBELLA VACCINE 0.5 ML VIAL SUB-Q (11:40)
[2023-04-27] MEDS: MULTIVIT/MIN/PREN/FOL AC/IRON TABLET 1 TAB PO (11:40)
[2023-04-27] MEDS: POLYSACCHARIDE IRON COMPLEX 150 MG CAPSULE PO (11:40)
[2023-04-29 11:37] VITALS: BP 121/75; PULSE 80; RESP 18; TEMP 36.6; O2SAT 100
== END 2023-04-27 13:55 | disposition home or self-care (01) | DRG 540 ==
LOC: ANHLDR 06:48 → ANHOB2 04-25 14:03
PROVIDERS: Admitting Provider Obstetrics & Gynecology; Visit Provider Obstetrics & Gynecology
PROC: 10D00Z1 Extraction of Products of Conception, Low, Open Approach (ICD-10-PCS; CPT 59514; principal; 2023-04-25 10:45)
DX: O34.211 Maternal care for low transverse scar from previous cesarean delivery (principal); O61.0 Failed medical induction of labor; Z37.0 Single live birth; Z3A.39 39 weeks gestation of pregnancy; O77.0 Labor and delivery complicated by meconium in amniotic fluid
CPT/HCPCS: 36415; 85025; 86592; 86850; 86900; 86901; 90710; A9270; J0290; J0456; J0690; J1885; J2274; J2405; J2590; J7030; J7120

== ENCOUNTER 2023-12-24 16:05 | Outpatient (CLI) | payer MEDICAID, SELFPAY ==
[2023-12-24 17:19] LABS: Hematocrit 36.7 % (37.0-47.0)
== END 2023-12-24 16:06 | disposition home or self-care (01) ==
LOC: ANHLAB 16:06
PROVIDERS: Visit Provider Obstetrics & Gynecology
DX: Z01.818 Encounter for other preprocedural examination (principal); N92.6 Irregular menstruation, unspecified; R10.2 Pelvic and perineal pain
CPT/HCPCS: 36415; 85014; 85018; 86850; 86900; 86901

== ENCOUNTER 2023-12-26 01:54 | Day surgery (SDC) | payer MEDICAID, SELFPAY ==
[2023-12-18 15:04] VITALS: BMI 52.0
--- NOTE | 2023-12-18 15:50 | PC.NURSE ---
Report to the Outpatient Waiting Room, entrance under the green pavilion located off [facility], at time _130pm_ on date _[id number]_. Planned Procedure Time: _330pm_. Time changes happen often and if your time is changed the preop area will call you the afternoon before. - You and your visitor will be asked to self-screen and do not enter if you have any COVID symptoms. - A mask is optional within the hospital at this time. Patients may have clear liquids (water, carbonated beverages, clear teas, apple juice) until 3 hours prior to surgery with a maximum of 20 ounces. - No food from midnight until time of surgery Take the following medications with a SIP of water the morning of surgery: ___Inhaler if needed. DO NOT STOP ANY OF YOUR OTHER PRESCRIPTION MEDICATIONS PRIOR TO SURGERY ?EXCEPT THE FOLLOWING Medications to discontinue per physician None Date to take last dose Please no make-up, nail croatian, hairspray, perfume, deodorant, or body powder the day of surgery. No jewelry (including any body piercings) or valuables the day of surgery, leave them at home. Please take a shower or bath the night before, or the morning of, surgery with an antibacterial soap. Wear comfortable, loose fitting clothing. - Jewelry must be removed prior to entering the operating room. Rings and piercings that are not removed may be cut off. - The hospital will not accept responsibility for valuables. - Please leave all valuables, including medications, at home the day of surgery. If you are going home after surgery, a licensed garbage collector driver must drive you home. - NO public transportation without another adult if you receive anesthesia. - We recommend that an adult stay with you for 24 hours following discharge. - We also recommend that you do not drive, make important decision, drink alcoholic beverages, or take any drugs that were not prescribed by your health care provider for at least 24 hours after your discharge time. Follow any additional instructions given to you from your surgeon. If you or anyone in your household have experienced Covid symptoms in the past week, please notify your surgeon or the nurse liaison at the phone number below for possible testing. Telephone instructions given to __Tamara___and asked if any additional questions and then verbalized understanding. Patient advised to call surgeon office or pre surgery nurse liaison [phone] if any additional questions.
--- NOTE | 2023-12-23 07:59 | PM.IMHP ---
H&P: HPI History of Present Illness Date/Time: 12/23/23 07:59 Chief Complaint: Pelvic pain and excessive bleeding Narrative: 23-year-old 3 para 3 admitted for laparoscopy/hysteroscopy/dilatation curettage secondary to bleeding and pelvic pain. The ultrasound was not helpful as no abnormalities were seen. She continues have pain bleeding and discomfort despite multiple attempts at hormonal manipulation. Risks and benefits of the procedures were reviewed including use of , aspiration pneumonia, bleeding, transfusion, perforation injury to bowel, bladder, ureters, or other internal organs with need for open laparotomy. She received the ACOG handout entitled laparoscopy/hysteroscopy/dilatation curettage respectively. She had all questions answered to her satisfaction. She asked to proceed PMFSH Past Medical History Medical History Healthy female adult History of asthma Surgical History Surgical History No pertinent past surgical history Family History Family History Other Cancer Diabetes mellitus Social History Social History Years smoked: 2 Smoking status: Former smoker Tobacco type: e-cigarettes/vaping Second hand tobacco smoke exposure: No Substance use: current Substance use type: marijuana Other substance usage details: every day Lack of Transportation: No Lack of Food: Never True Current Housing: I Have Housing Concerned About Future Housing: No Difficulty Paying Gas/Electric Bills: No Difficulty Paying for Meds: No Currently Unemployed: No Education: Don't Know Difficulty w/ Childcare or Family Care: No Living arrangements: with family Gender identity (if verbalized by the patient): Female Spiritual care concerns: No Meds Home Medications and Allergies Home Medications Medication Instructions Recorded Confirmed Type albuterol sulfate 90 mcg/actuation 2 puff inhalation QID PRN Dyspnea 12/18/23 12/18/23 History aerosol inhaler Allergies Allergy/AdvReac Type Severity Reaction Status Date / Time latex Allergy Severe Hives Verified 12/18/23 15:03 coconut Allergy Other Verified 12/18/23 15:03 fluticasone Allergy Difficulty Verified 12/18/23 15:03 [From Advair Diskus] Breathing salmeterol Allergy Difficulty Verified 12/18/23 15:03 [From Adv Diskus] Breathing Exam Const: General: cooperative, healthy appearing, comfortable and overweight Orientation/consciousness: oriented to person, oriented to place and oriented to time HENMT: Head: normal to inspection Chest: Chest palpation & inspection: normal inspection of the chest Resp: Effort & Inspection: normal respiratory effort Cardio: Rate: regular rate Rhythm: regular rhythm Heart sounds: S1 normal heart sound present and S2 normal heart sound present GI: Inspection: normal to inspection : External Female Exam: normal external appearance Speculum Exam - Vagina: normal appearance of the vagina Speculum Exam - Cervix: normal appearance of the cervix Bimanual exam- vagina & uterus: enlarged and Uterine tenderness Bimanual Exam- Adnexa, other: tender Assessment and Plan Assessment and plan (1) Pelvic pain: Code(s): R10.2 - Pelvic and perineal pain Status: Acute (2) Excessive bleeding: Code(s): R58 - Hemorrhage, not elsewhere classified Status: Acute (3) Dyspareunia: Status: Acute Plan Will proceed with laparoscopy/hysteroscopy/dilatation and curettage
[2023-12-26] VITALS (10 sets, daily range): BP systolic 96–152; BP diastolic 59–82; PULSE 53–87; RESP 14–26; TEMP 36.3–36.4; O2SAT 98–100
--- NOTE | 2023-12-26 06:54 | WPDHPUPDATE1 ---
History and Physical Update Update Date/Time: 12/26/23 06:54 History and Physical has been reviewed, including an updated exam of the patient. There are NO changes in the patient's condition. Risks, benefits, and alternatives have been discussed and questions answered. Patient agrees to proceed with procedure.
--- NOTE | 2023-12-26 11:32 | WPDANESEPPF ---
Anes - Initial Pre Proc Eval Procedure: Operation Date: 12/26/23 13:00 Proposed Procedures p Diagnostic Laparoscopy, Hysteroscopy with Dilation and Curettage - Kareem Singh MD Date/Time: 12/26/23 11:32 Surgeon: Kareem Singh MD Pre Op Diagnosis: Pelvic Pain, Irg Bleed, Dyspareunia Patient Data Age: 23 Gender: F Height: 1.65 m Weight: 145.8 kg Last Vital Signs Temp 97.6 F 12/26/23 11:17 Pulse 87 12/26/23 11:17 Resp 16 12/26/23 11:17 BP 131/73 12/26/23 11:17 Pulse Ox 100 12/26/23 11:17 O2 Del Method Room Air 12/26/23 11:17 Allergies Allergy/AdvReac Type Severity Reaction Status Date / Time latex Allergy Severe Hives Verified 12/26/23 11:21 coconut Allergy Other Verified 12/26/23 11:21 fluticasone Allergy Difficulty Verified 12/26/23 11:21 [From Advair Diskus] Breathing salmeterol Allergy Difficulty Verified 12/26/23 11:21 [From Advair Diskus] Breathing Home Medications Medication Instructions Recorded Confirmed Type albuterol sulfate 90 mcg/actuation 2 puff inhalation QID PRN Dyspnea 12/18/23 12/26/23 History aerosol inhaler hydrocodone 5 mg-acetaminophen 325 1 tablet PO Q4H PRN pain #20 tabs 12/26/23 Rx mg tablet Patient hx anesthesia problems: none Family hx anesthesia problems: none Results Review: All pre-operative results and documents have been reviewed as part of the pre-operative evaluation. [facility] Past Medical History Medical History Healthy female adult History of asthma Surgical History Surgical History No pertinent past surgical history Family History Family History Other Cancer Diabetes mellitus Social History Social History Years smoked: 2 Smoking status: Former smoker Tobacco type: e-cigarettes/vaping Second hand tobacco smoke exposure: No Substance use: current Substance use type: marijuana Other substance usage details: every day Lack of Transportation: No Lack of Food: Never True Current Housing: I Have Housing Concerned About Future Housing: No Difficulty Paying Gas/Electric Bills: No Difficulty Paying for Meds: No Currently Unemployed: No Education: Don't Know Difficulty w/ Childcare or Family Care: No Living arrangements: with family Gender identity (if verbalized by the patient): Female Spiritual care concerns: No Anes - Eval Final PreProcedure Day of Procedure 12/26/23 11:32 Patient weight: super morbidly obese Heart: regular rate and rhythm Lungs: clear to auscultation Airway: Mallampati scale class II and special considerations (Upper left and lower R teeth w cracks in them, not loose per pt. ) Neurological: alert and oriented Last oral intake: >/= 8 hours ASA classification: III Emergent: no Anesthetic plan: proceed Anesthesia type and monitoring: general ETT and standard monitoring Results Review: All pre-operative results and documents have been reviewed as part of the pre-operative evaluation. Pt vapes daily, vaped just prior to arrival. Informed Consent: The patient's anesthetic plan and its attendant risks and benefits were discussed with the patient/family/POA. Questions were solicited and answers provided to the satisfaction of the patient/family/POA.
[2023-12-26] MEDS: ACETAMINOPHEN 500 MG TABLET 1000 MG PO (11:34)
[2023-12-26] MEDS: LACTATED RINGERS 1,000 ML 30 ML IV CONT ×2 (11:50→14:21)
--- NOTE | 2023-12-26 13:08 | W.PM.PROC2 ---
Procedure Note - Detailed Date of Procedure 12/26/23 Pre-op Diagnosis Pelvic Pain, Irg Bleed, Dyspareunia Post-op Diagnosis Other (Pelvic pain/irregular bleeding / dyspareunia/ endometriosis/ adhesions/ uterine polyp) Procedure Performed laparoscopy with lysis of adhesions and destruction of endometriosis /hysteroscopy/ polypectomy/dilatation and curettage Surgeon Kareem Singh MD Anesthesia General Indications this is 3-year-old with severe pelvic pain and excessive heavy bleeding Findings a laparoscopy multiple adhesions were seen to the abdominal wall from the omentum. Endometriosis was seen along the right uterosacral ligament. On hysteroscopy a uterine polyp was seen with thickened endometrium. Description of Procedure Patient was prepped draped in the sterile fashion placed in the dorsal lithotomy position. Under excellent general trach anesthesia weighted speculum placed in posterior fornix vagina. Anterior lip of the cervix grasped with single-tooth tenaculum. The Harris's cannula was inserted the cervix attached to the single-tooth. This would be used later for uterine manipulation. Bladder emptied of clear urine with a 16 Dominican catheter. The gloves were changed Supraumbilical incision made the Veress needle passed in the abdomen. Abdomen filled with CO2 gas [id number]. The 5mm trocar advanced in the abdomen under direct visualization assuring no injury. Patient placed in Trendelenburg and a left lower quadrant incision made if 5mm trocar advanced under direct visualization assuring no injury. Multiple adhesions were seen from the omentum to the anterior abdominal. Sharp dissection was undertaken at with the occasional cautery relieving this. A small area of endometriosis were seen along the right uterosacral ligament. This was cauterized at 35 w per 2nd with monopolar cautery. Irrigation undertaken until clear. Remainder the pelvis appeared within limits. The lower site removed. The gas removed from the abdomen. The upper site removed. The incisions closed with 4 Monocryl and glue. Attention was then turned to the hysteroscopic portion of the uterus. The uterus sounded to 8cm. Serial dilatation with fragmented dilators performed followed by passage of 5mm visualizing hysteroscope using normal saline as visualizing medium. Small endometrial polyps were seen and using the hysteroscope with the reticulating instrument the polyp was removed without difficulty. Uterus was then scraped over the entire 360? until a good grating sound was heard. The instruments were withdrawn patient was awakened she which recovery in satisfactory condition. All sponge, needle, instrument counts were correct. Were no immediate complications Estimated Blood Loss 5 Drains No Packing No Pathology Yes Complications No immediate complications Condition Stable Disposition PACU
[2023-12-26] MEDS: KETOROLAC 15 MG/ML VIAL (*BKC) IV PUSH (13:19)
[2023-12-26] MEDS: ONDANSETRON INJ 4 MG/2 ML VIAL IV PUSH (14:25)
[2023-12-26] MEDS: SCOPOLAMINE 1 MG PATCH 1 PATCH TRANSDERM (15:20)
[2023-12-26] MEDS: diphenhydrAMINE HCl INJ 50 MG/ML VIAL 25 MG IV PUSH (15:20)
== END 2023-12-26 16:10 | disposition home or self-care (01) ==
PROVIDERS: Visit Provider Obstetrics & Gynecology
PROC: 0UDB8ZZ Extraction of Endometrium, Via Natural or Artificial Opening Endoscopic (ICD-10-PCS; CPT 58558; principal; 2023-12-26 13:00)
DX: N84.0 Polyp of corpus uteri (principal); N80.3C1 Endometriosis of the right uterosacral ligament, unspecified depth; N73.6 Female pelvic peritoneal adhesions (postinfective); J45.909 Unspecified asthma, uncomplicated; F12.90 Cannabis use, unspecified, uncomplicated; E66.01 Morbid (severe) obesity due to excess calories; Z68.43 Body mass index [BMI] 50.0-59.9, adult; Z79.51 Long term (current) use of inhaled steroids; Z79.891 Long term (current) use of opiate analgesic; Z87.891 Personal history of nicotine dependence; Z80.9 Family history of malignant neoplasm, unspecified
CPT/HCPCS: 58558; 58662; 88305; A9270; J0330; J1100; J1200; J1885; J2250; J2405; J2704; J3010; J7120; Q9968

== ENCOUNTER 2024-03-05 09:50 | Emergency (ER) | payer OTHER, SELFPAY ==
[2024-03-05 10:03] VITALS: BP 140/70; PULSE 92; RESP 16; TEMP 36.8; O2SAT 99
--- NOTE | 2024-03-05 13:11 | ED.GENADULT ---
HPI - General Adult General Chief complaint: Vaginal Bleeding Stated complaint: vag bleed, 9 weeks Time Seen by Provider: 03/05/24 12:31 History of Present Illness HPI narrative: This is a 23-year-old female at 8w6d by last menstrual period presenting for vaginal bleeding. Yesterday she had some spotting. Today she developed have your red bleeding. She is concerned that she is having a miscarriage. She does have some associated crampy abdominal pain. No urinary symptoms. No fevers chills chest pain difficulty breathing. OBGYN is Dr.Dala Singh Related Data Home Medications Medication Instructions Recorded Confirmed albuterol sulfate 90 mcg/actuation 2 puff inhalation QID PRN Dyspnea 12/18/23 12/26/23 aerosol inhaler Allergies Allergy/AdvReac Type Severity Reaction Status Date / Time latex Allergy Severe Hives Verified 12/26/23 11:21 coconut Allergy Other Verified 12/26/23 11:21 fluticasone Allergy Difficulty Verified 12/26/23 11:21 [From Advair Diskus] Breathing salmeterol Allergy Difficulty Verified 12/26/23 11:21 [From Advair Diskus] Breathing PMFSH Past Medical History Medical History Healthy female adult History of asthma Surgical History Surgical History No pertinent past surgical history Family History Family History Other Cancer Diabetes mellitus Social History Social History Years smoked: 2 Smoking status: Former smoker Tobacco type: e-cigarettes/vaping Second hand tobacco smoke exposure: No Substance use: current Substance use type: marijuana Other substance usage details: every day Lack of Transportation: No Lack of Food: Never True Current Housing: I Have Housing Concerned About Future Housing: No Difficulty Paying Gas/Electric Bills: No Difficulty Paying for Meds: No Currently Unemployed: No Education: Don't Know Difficulty w/ Childcare or Family Care: No Living arrangements: with family Gender identity (if verbalized by the patient): Female Spiritual care concerns: No Exam Narrative: APPEARANCE: No apparent distress. Head: atraumatic. EYES: EOMI, NOSE: Atraumatic NECK: Trachea midline RESPIRATORY: No increased rate of breathing clear to auscultation CARDIOVASCULAR: RRR, no peripheral edema ABDOMINAL: Non-distended soft nontender no guarding rebound although exam is limited by body habitus MUSCULOSKELETAl: No obvious deformities NEURO: Alert. Moving 4/4 extremities SKIN:: Warm, dry. Normal color PSYCHIATRIC: Normal affect Course Vital Signs Vital signs: Vital Signs Temperature 98.2 F 03/05/24 10:03 Pulse Rate 92 03/05/24 10:03 Respiratory Rate 16 03/05/24 10:03 Blood Pressure 140/70 03/05/24 10:03 Pulse Oximetry 99 03/05/24 10:03 Temperature 98.2 F 03/05/24 10:03 Pulse Rate 92 03/05/24 10:03 Respiratory Rate 16 03/05/24 10:03 Blood Pressure 140/70 03/05/24 10:03 Pulse Oximetry 99 03/05/24 10:03 Medical Decision Making [facility] Narrative Medical decision making narrative: -Course: This a 23-year-old female presenting with vaginal bleeding in . Patient's urine here was negative. Serum HCG was undetectable. Results were discussed with the patient she was discharged with OBGYN follow-up. Given return precautions for bleeding. -DDX includes but is not limited to: Menstrual period, miscarriage, completed miscarriage -Independent interpretation of studies: Urine negative. Serum HCG negative. Blood type O positive. -Procedures: 20 gauge ultrasound IV placed in left forearm to difficult IV access. -Shared decision making / Disposition: Discharged Vital Signs Vital Signs: Vital Signs Temperature 98.2
[2024-03-05 14:00] LABS: Basophils Absolute Auto 0.1 K/mm3 (0.0-0.1); Basophils Percent Auto 0.4 % (0.2-1.2); Eosinophils Absolute Auto 0.3 K/mm3 (0-0.3); Eosinophils Percent Auto 2.5 % (0-4.4); Hematocrit 36.2 % (37.0-47.0); Hemoglobin 10.9 g/dL (12.0-15.0); Immature Granulocyte Absolute 0.05 K/mm3 (0.00-0.031); Immature Granulocyte Percent A 0.4 % (0-0.5); Lymphocytes Absolute Auto 2.85 K/mm3 (0.9-3.2); Lymphocytes Percent Auto 24.2 % (18.3-44.2); Mean Corpuscular HGB Conc 30.1 g/dl (32-36); Mean Corpuscular Hemoglobin 23.3 pg (26-34); Mean Corpuscular Volume 77.4 fl (80-100); Mean Platelet Volume 11.2 fl (7.4-10.4); Monocytes Absolute Auto 0.7 K/mm3 (0.1-0.6); Monocytes Percent Auto 6.1 % (2.6-8.5); Neutrophils Absolute Auto 7.8 K/mm3 (1.3-6.7); Neutrophils Percent Auto 66.4 % (45.5-73.1); Platelet Count Result 277 k/mm3 (150-375); Red Blood Count 4.68 M/mm3 (4.2-5.4); Red Cell Distribution Width 17.6 % (11.5-14.5); White Blood Count 11.8 K/mm3 (4.5-10.0)
[2024-03-05 14:05] LABS: BEDSIDEPREGUCG Negative
[2024-03-05 14:11] LABS: Alanine Aminotransferase 44 U/L (6-35); Albumin Level 4.2 g/dL (3.5-5.1); Alkaline Phosphatase 115 U/L (38-126); Anion Gap 3 mmol/L (4-12); Aspartate Amino Transferase 26 U/L (14-36); Bilirubin,Total 0.4 mg/dL (0.2-1.3); Blood Urea Nitrogen 12 mg/dL (7-17); Calcium 9.1 mg/dL (8.4-10.2); Carbon Dioxide 31 mmol/L (22-30); Chloride 105 mmol/L (98-107); Estimated CRCL calculation 151 ml/min; Estimated Glomerular Filt Rate > 60; Glucose 87 mg/dL (65-110); Potassium 3.9 mmol/L (3.4-5.0); Sodium 139 mmol/L (137-145)
[2024-03-05 14:12] LABS: Bacteria Urine None Seen /hpf; Non Pathogenic Casts 0-2; RBC Urine >100 /hpf (0-2); Squamous Epithelial Cell Urine None Seen /hpf (Few)
[2024-03-05 14:13] LABS: Prothrombin Time 13.2 Seconds (11.1-14.7)
[2024-03-05 14:14] LABS: Partial Thromboplastin Time 27.7 Seconds (22.3-36.8)
[2024-03-05 14:28] LABS: Beta HCG Quantitative < 2.39 mIU/ML
[2024-03-05 14:29] LABS: Add Urine Microscopic? YES; Appearance Urine Turbid (Clear); Bilirubin Urine 1+ (Negative); Blood Urine 3+ (Negative); Color Urine Red (Yellow); Glucose Urine UA Negative (Negative); Ketones Urine Negative (Negative); Leukocyte Esterase Ur 1+ LEU/UL (Negative); Nitrate Urine Negative (Negative); Protein Urine 2+ mg/dL (Negative); Specific Grav Ur 1.034 (1.001-1.035)
[2024-03-05 15:20] VITALS: BP 146/95; PULSE 70; RESP 16; TEMP 37.2; O2SAT 100
== END 2024-03-05 15:20 | disposition home or self-care (01) ==
PROVIDERS: Emergency Medicine; Emergency Provider Emergency Medicine
DX: N93.9 Abnormal uterine and vaginal bleeding, unspecified (principal); J45.909 Unspecified asthma, uncomplicated; Z87.891 Personal history of nicotine dependence
CPT/HCPCS: 36415; 80053; 81001; 81025; 84702; 85025; 85461; 85610; 85730; 86850; 86900; 86901; 87086; 87088; 99284

== ENCOUNTER 2025-03-09 10:29 | Emergency (ER) | payer OTHER, SELFPAY ==
[2025-03-09 10:47] VITALS: BP 142/66; PULSE 80; RESP 16; TEMP 36.7; O2SAT 100
--- OUTSIDE RECORDS SUMMARY | 2025-03-09 11:04 | XMS_ITS | Clinical Summary ---
Author Organization [facility] Address [address] [place] [address] Care Team Providers Care Policeman Name Role Phone Unavailable Primary Care Provider Unavailabl e Source Comments [facility],non-owned Affiliates and Associated Physician Practices is amultiple site organization consisting of ambulatory clinics and hospital sitesin [place], [place], [place] and [place]. This disclosure is being madepursuant to the Care Everywhere program and may not contain all information available regarding this patient. Last updated 18.[facility] [employer] Allergies Active Allergy Reactions Criticality Noted Date Comments Advair Diskus Swelling High 09/12/2020 Coconut Flavor Rash,Swelling High 09/12/2020 Latex Rash,Swelling Medium 09/12/2020 Medications * Be aware that medications may not be up to date on this document. Alwaysverify current medications with the patient. LEVOTHYROXINE SODIUM PO Active ALBUTEROL IN Active albuterol HFA (PROVENTIL;RADHA CARLOS;PROAIR) 108 (90 Base) MCG/ACT inhalerIndicatio ns:Asthma, unspecified asthma severity, unspecified whether complicated, unspecified whether persistent (HCC),Medication refill Inhale 2 (two) puffs by mouth every 6 hours as needed 1 Inhaler 09/12/2020 Active Social History Tobacco Use Types Packs/Day Years Used Date Smoking Tobacco: Former Cigarettes Q uit: 07/12/2020 Smokeless Tobacco: Never Comments No Sex and Gender Information Value Date Recorded Sex Assigned at Not on file Legal Sex Female 6:32 PM PLANER OPERATOR Gender Identity Not on file Sexual Orientation Not on file Last Filed Vital Signs Vital Sign Reading Time Taken Comments Blood Pressure 118/72 09/12/2020 11:55 AM PLANER OPERATOR Pulse 87 09/12/2020 11:55 AM PLANER OPERATOR Temperature 36.7 C (98 F) 09/12/2020 11:55 AM PLANER OPERATOR Respiratory Rate 16 09/12/2020 11:55 AM PLANER OPERATOR Oxygen Saturation 98% 09/12/2020 11:55 AM PLANER OPERATOR Inhaled Oxygen Concentration - - Weight 90.7 kg (200 lb) 09/12/2020 11:55 AM PLANER OPERATOR Height 162.6 cm (5' 4) 09/12/2020 11:55 AM PLANER OPERATOR Body Mass Index 34.33 09/12/2020 11:55 AM PLANER OPERATOR Plan of Treatment Health Maintenance Due Date Last Done Comments HIV SCREENING 2013 HPV VACCINE (1 - 3-dose series) 2013 HEPATITIS C SCREENING 04/19/2016 DTAP/TDAP/TD VACCINES (1 - Tdap) 2017 HEPATITIS B VACCINE (1 of 3 - 19+ 3-dose series) 2017 PAP SMEAR 2019 COVID-19 VACCINE (1 - 2023-2 5 season) 2024 DEPRESSION SCREENING 08/04/2024 INFLUENZA VACCINE (#1) 2025 05/16/2014 ZOSTER VACCINE (1 of 2) 2048 HIB VACCINE Aged Out No longer eligi ble based on patient's age to complete this topic MENINGOCOCCAL (Group B) VACC INE SHARED DECISION-MAKING Aged Out No longer eligibl e based on patient's age to complete this topic MENINGOCOCCAL GROUPS A/C/Y/W VACCINE Aged Out No longer eligible b ased on patient's age to complete this topic PNEUMOCOCCAL VACCINE Aged Out No long er eligible based on patient's age to [place] [address] MEDICAID AETNA [facility] MEDICAID A[employer] [facility] [facility] [place] * Guarantor: VANESSA SANFORD Account Type Relation to Patient Date of Phone Billing Address Personal/Family [address] [place] [address] MEDICAID A[employer]NA [place] * Guarantor: VANESSA SANFORD Account Type Relation to Patient Date of Phone Billing Address Personal/Family [address] MEDICAID [employer] [place]
[2025-03-09] MEDS: SODIUM CHLORIDE 0.9% IV 1,000 ML 999 ML IV CONT (12:03)
[2025-03-09] MEDS: ONDANSETRON INJ 4 MG/2 ML VIAL IV PUSH (12:03)
--- OUTSIDE RECORDS SUMMARY | 2025-03-09 12:03 | XMS_ITS | Clinical Summary ---
Author Organization [facility] Address [address] [place] [address] Care Team Providers Care Shift Production Supervisor Name Role Phone Unavailable Primary Care Provider Unavailabl e Source Comments [facility],non-owned Affiliates and Associated Physician Practices is amultiple site organization consisting of ambulatory clinics and hospital sitesin [place], [place], [place] and [place]. This disclosure is being madepursuant to the Care Everywhere program and may not contain all information available regarding this patient. Last updated 18.[facility] [employer] Allergies Active Allergy Reactions Criticality Noted Date [...] on file Legal Sex Female 6:32 PM DEPUTY COUNTY CLERK Gender Identity Not on file Sexual Orientation Not on file Last Filed Vital Signs Vital Sign Reading Time Taken Comments Blood Pressure 118/72 09/12/2020 11:55 AM DEPUTY COUNTY CLERK Pulse 87 09/12/2020 11:55 AM DEPUTY COUNTY CLERK Temperature 36.7 C (98 F) 09/12/2020 11:55 AM DEPUTY COUNTY CLERK Respiratory Rate 16 09/12/2020 11:55 AM DEPUTY COUNTY CLERK Oxygen Saturation 98% 09/12/2020 11:55 AM DEPUTY COUNTY CLERK Inhaled Oxygen Concentration - - Weight 90.7 kg (200 lb) 09/12/2020 11:55 AM DEPUTY COUNTY CLERK Height 162.6 cm (5' 4) 09/12/2020 11:55 AM DEPUTY COUNTY CLERK Body Mass Index 34.33 09/12/2020 11:55 AM DEPUTY COUNTY CLERK Plan of Treatment Health Maintenance Due Date [...] patient's age [place] [address] MEDICAID AETNA [facility] MEDICAID A[employer]NA [employer] [place] * Guarantor: VANESSA SANFORD Account Type Relation to Patient Date of Phone Billing Address Personal/Family [address] [place] [address] MEDICAID AETNA [facility] [place] * Guarantor: VANESSA SANFORD Account Type Relation to Patient Date of Phone Billing Address Personal/Family [address] MEDICAID [employer] [place]
[2025-03-09 12:14] LABS: Hematocrit 36.7 % (37.0-47.0); Hemoglobin 11.2 g/dL (12.0-15.0); Immature Granulocyte Percent A 0.3 % (0-0.5); Lymphocytes Absolute Auto 2.49 K/mm3 (0.9-3.2); Mean Corpuscular HGB Conc 30.5 g/dl (32-36); Mean Corpuscular Hemoglobin 24.0 pg (26-34); Mean Corpuscular Volume 78.6 fl (80-100); Nucleated Red Blood Cells Absolute Auto 0.000 K/mm3 (0.0-0.012); Nucleated Red Blood Cells Perc 0.0 % (0.0-0.2); Platelet Count Result 248 k/mm3 (150-375); Red Blood Count 4.67 M/mm3 (4.2-5.4); White Blood Count 11.4 K/mm3 (4.5-10.0)
[2025-03-09 12:27] LABS: Add Urine Microscopic? YES; Appearance Urine Clear (Clear); Glucose Urine UA Negative (Negative); Leukocyte Esterase Ur Negative LEU/UL (Negative); Nitrate Urine Negative (Negative); Specific Grav Ur 1.031 (1.001-1.035)
[2025-03-09 12:42] LABS: Alanine Aminotransferase 29 U/L (6-35); Albumin Level 4.0 g/dL (3.5-5.1); Alkaline Phosphatase 113 U/L (38-126); Anion Gap 10 mmol/L (4-12); Aspartate Amino Transferase 32 U/L (14-36); Bilirubin,Total 0.5 mg/dL (0.2-1.3); Blood Urea Nitrogen 12 mg/dL (7-17); Calcium 9.4 mg/dL (8.4-10.2); Carbon Dioxide 24 mmol/L (22-30); Chloride 104 mmol/L (98-107); Estimated CRCL calculation 180 ml/min; Estimated Glomerular Filt Rate > 60; Glucose 89 mg/dL (65-110); Potassium 3.8 mmol/L (3.4-5.0); Sodium 138 mmol/L (137-145); Total Protein 7.6 g/dL (6.3-8.2)
--- NOTE | 2025-03-09 13:35 | ED_ITS ---
HPI - General Adult General Chief complaint: Nausea/Vomiting/Diarrhea Stated complaint: 9 weeks preg, requesting IVF Time Seen by Provider: 03/09/25 11:16 History of Present Illness HPI narrative: Patient is a 24-year-old female who presents ER with nausea vomiting. Ongoing over last week. She is 9 weeks . History of vomiting previous. . No vaginal bleeding. No known sick contacts. No diarrhea. No urinary symptoms. Related Data Home Medications ?Medication ?Instructions ?Recorded ?Confirmed ?Last Taken ?Type albuterol sulfate 90 mcg/actuation 2 puff inhalation QID PRN Dyspnea 12/18/23 12/26/23 Unknown History aerosol inhaler Allergies Allergy/AdvReac Type Severity Reaction Status Date / Time latex Allergy Severe Hives Verified 12/26/23 11:21 coconut Allergy Other Verified 12/26/23 11:21 fluticasone (From Advair Allergy Difficulty Verified 12/26/23 11:21 Diskus) Breathing salmeterol (From Advair Allergy Difficulty Verified 12/26/23 11:21 Diskus) Breathing Review of Systems 2 Review of Systems: All systems reviewed & are unremarkable except as noted in HPI and below Constitutional: Constitutional: Reports no additional constitutional complaints Cardiovascular: Cardiovascular: Reports no additional cardiovascular complaints Respiratory: Respiratory: Reports no additional respiratory complaints Gastrointestinal: Gastrointestinal: Reports no additional gastrointestinal complaints Genitourinary: Genitourinary: Reports no additional female genitourinary complaints PMF Past Medical History Medical History Healthy female adult History of asthma Surgical History Surgical History No pertinent past surgical history Family History Family History Other Cancer Diabetes mellitus Social History Social History Years smoked: 2 Smoking status: Former smoker Tobacco type: e-cigarettes/vaping Second hand tobacco smoke exposure: No Substance use: current Substance use type: marijuana Other substance usage details: every day Lack of Transportation: No Lack of Food: Never True Current Housing: I Have Housing Concerned About Future Housing: No Difficulty Paying Gas/Electric Bills: No Difficulty Paying for Meds: No Currently Unemployed: No Education: Don't Know Difficulty w/ Childcare or Family Care: No Living arrangements: with family Gender identity (if verbalized by the patient): Female Spiritual care concerns: No Exam 2 Narrative: GENERAL: Well-appearing, obese, and in no acute distress. HEAD: Normocephalic, atraumatic. EYES: PERRL and EOMI. ENT: Mucous membranes moist. CHEST: Clear to auscultation. No respiratory distress. HEART: Regular rate and rhythm. Normal peripheral pulses. ABDOMEN: Soft, nontender, nondistended. EXTREMITIES: Normal range of motion. No edema. SKIN: Warm, dry, no rash. NEURO: Alert and oriented x3. PSYCH: Normal mood and affect. Course Course Emergency Course: Patient resting comfortably. Hydrated. Antiemetics. Discharge home with additional antiemetics. Small amount of bacteria in urine. Will give antibiotic for asymptomatic bacteriuria. Vital Signs Vital signs: Vital Signs Temperature 98.1 F 03/09/25 10:47 Pulse Rate 80 03/09/25 10:47 Respiratory Rate 16 03/09/25 10:47 Blood Pressure 142/66 H 03/09/25 10:47 Pulse Oximetry 100 03/09/25 10:47 Oxygen Delivery Room Air 03/09/25 10:47 Temperature 98.1 F 03/09/25 10:47 Pulse Rate 80 03/09/25 10:47 Respiratory Rate 16 03/09/25 10:47 Blood Pressure 142/66 H 03/09/25 10:47 Pulse Oximetry 100 03/09/25 10:47 Oxygen Delivery Room Air 03/09/25 10:47 Medical Decision Making Vital Signs Vital Signs: Vital Signs Temperature 98.1 F 03/09/25 10:47 Pulse Rate 80 03/09/25 10:47 Respiratory Rate 16 03/09/25 10:47 Blood Pressure 142/66 H 03/09/25 10:47 Pulse Oximetry 100 03/09/25 10:47 Oxygen Delivery Room Air 03/09/25 10:47 Temperature 98.1 F 03/09/25 10:47 Pulse Rate 80 03/09/25 10:47 Respiratory Rate 16 03/09/25 10:47 Blood Pressure 142/66 H 03/09/25 10:47 Pulse Oximetry 100 03/09/25 10:47 Oxygen Delivery Room Air 03/09/25 10:47 Lab Data 03/09/25 11:59 03/09/25 11:59 Labs: Lab Results 03/09/25 Range/Units 11:59 WBC 11.4 H (4.5-10.0) K/mm3 RBC 4.67 (4.2-5.4) M/mm3 Hgb 11.2 L (12.0-15.0) g/dL Hct 36.7 L (37.0-47.0) % MCV 78.6 L (80-100) fl MCH 24.0 L (26-34) pg MCHC 30.5 L (32-36) g/dl RDW 16.1 H (11.5-14.5) % Plt Count 248 (150-375) k/mm3 MPV 10.5 H (7.4-10.4) fl Immature Gran % (Auto) 0.3 (0-0.5) % Neut % (Auto) 70.1 (45.5-73.1) % Lymph % (Auto) 21.9 (18.3-44.2) % [place] % (Auto) 5.3 (2.6-8.5) % Eos % (Auto) 2.0 (0-4.4) % Baso % (Auto) 0.4 (0.2-1.2) % Lymph # (Auto) 2.49 (0.9-3.2) K/mm3 [place] # (Auto) 0.6 (0.1-0.6) K/mm3 Eos # (Auto) 0.2 (0-0.3) K/mm3 Baso # (Auto) 0.0 (0.0-0.1) K/mm3 Abs Immat Gran (auto) 0.03 (0.00-0.031) K/mm3 Absolute Neuts (auto) 8.0 H (1.3-6.7) K/mm3 Absolute Nucleated RBC 0.000 (0.0-0.012) K/mm3 Nucleated RBC % 0.0 (0.0-0.2) % Sodium 138 (137-145) mmol/L Potassium 3.8 (3.4-5.0) mmol/L Chloride 104 (98-107) mmol/L Carbon Dioxide 24 (22-30) mmol/L Anion Gap 10 (4-12) mmol/L BUN 12 (7-17) mg/dL Creatinine 0.61 L (0.7-1.0) mg/dL Estim Creat Clear Calc 180 ml/min Estimated GFR > 60 (59 - ) Glucose 89 (65-110) mg/dL Calcium 9.4 (8.4-10.2) mg/dL Total Bilirubin 0.5 (0.2-1.3) mg/dL AST 32 (14-36) U/L ALT 29 (6-35) U/L Alkaline Phosphatase 113 (38-126) U/L Total Protein 7.6 (6.3-8.2) g/dL Albumin 4.0 (3.5-5.1) g/dL Urine Color Yellow (Yellow) Urine Appearance Clear (Clear) Urine pH 5.5 (5.0-9.0) Ur Specific [place] 1.031 (1.001-1.035) Urine Protein 3+ H (Negative) mg/dL Urine Glucose (UA) Negative (Negative) mg/dL Urine Ketones 2+ H (Negative) mg/dL Ur Blood (Man) 2+ H (Negative) Urine Nitrate Negative (Negative) Urine Bilirubin Negative (Negative) Urine Urobilinogen 0.2 (<2.0) mg/dL Leukocyte Esterase Rfl Negative (Negative) TACHO/UL Urine RBC 3-5 H (0-2) /hpf Urine WBC 0-5 (0-3) /hpf Ur Squamous Epith Cells Few (Few) /hpf Urine Bacteria 1+ H /hpf Urine Casts 3-5 Discharge Plan Discharge Clinical Impression: Nausea & vomiting, Asymptomatic bacteriuria during Patient Disposition: Home Condition: Stable Instructions: Nausea and Vomiting in (ED) Additional Instructions: Return to the emergency department if you develop severe abdominal pain, severe nausea and vomiting to the point where you are unable to keep down fluids, if you develop chest pain or difficulty breathing, blood in your stool, dizziness or fainting, or if you develop any other new or concerning symptoms as these could be signs of more serious medical illness. Try to stay well hydrated. Patient Language: Omani Prescriptions: New ondansetron 4 mg tablet,disintegrating 4 mg PO Q6H PRN (Reason: nausea and vomiting) Qty: 10 0RF cephalexin 500 mg capsule 500 mg PO Q8H Qty: 12 0RF No Action albuterol sulfate 90 mcg/actuation Hfa Aerosol Inhaler 2 puff INHALATION QID PRN (Reason: Dyspnea) hydrocodone-acetaminophen 5-325 mg tablet 1 tablet PO Q4H PRN (Reason: pain) Qty: 20 0RF Follow-up/Referrals: PHYSICIAN,SENIOR MARKETING ANALYST [Primary Care Provider] - Mir Franks MD [Physician] - 1 Week
[2025-03-09 13:57] VITALS: BP 115/72; PULSE 79; RESP 16; TEMP 36.7; O2SAT 100
== END 2025-03-09 13:58 | disposition home or self-care (01) ==
PROVIDERS: Emergency Provider Emergency Medicine
DX: O21.9 Vomiting of pregnancy, unspecified (principal); O26.891 Other specified pregnancy related conditions, first trimester; R82.71 Bacteriuria; O99.511 Diseases of the respiratory system complicating pregnancy, first trimester; J45.909 Unspecified asthma, uncomplicated; Z87.891 Personal history of nicotine dependence; Z3A.09 9 weeks gestation of pregnancy
CPT/HCPCS: 36415; 80053; 81001; 85025; 96361; 96374; 99284; J2405; J7030

== ENCOUNTER 2025-03-28 08:53 | Emergency (ER) | payer OTHER, SELFPAY ==
[2025-03-28 08:59] VITALS: BP 155/81; PULSE 82; RESP 17; TEMP 36.6; O2SAT 100
--- OUTSIDE RECORDS SUMMARY | 2025-03-28 09:19 | XMS_ITS | Clinical Summary ---
Author Organization [facility] Address [address] [place] [address] Care Team Providers Care Fire Extinguisher Mechanic Name Role Phone Unavailable Primary Care Provider Unavailabl e Source Comments [facility],non-owned Affiliates and Associated Physician Practices is amultiple site organization consisting of ambulatory clinics and hospital sitesin [place], [place], [place] and [place]. This disclosure is being madepursuant to the Care Everywhere program and may not contain all information available regarding this patient. Last updated 18.[facility] [employer] Allergies Active Allergy Reactions Criticality Noted Date [...] on file Legal Sex Female 6:32 PM STOCKING INSPECTOR Gender Identity Not on file Sexual Orientation Not on file Last Filed Vital Signs Vital Sign Reading Time Taken Comments Blood Pressure 118/72 09/12/2020 11:55 AM STOCKING INSPECTOR Pulse 87 09/12/2020 11:55 AM STOCKING INSPECTOR Temperature 36.7 C (98 F) 09/12/2020 11:55 AM STOCKING INSPECTOR Respiratory Rate 16 09/12/2020 11:55 AM STOCKING INSPECTOR Oxygen Saturation 98% 09/12/2020 11:55 AM STOCKING INSPECTOR Inhaled Oxygen Concentration - - Weight 90.7 kg (200 lb) 09/12/2020 11:55 AM STOCKING INSPECTOR Height 162.6 cm (5' 4) 09/12/2020 11:55 AM STOCKING INSPECTOR Body Mass Index 34.33 09/12/2020 11:55 AM STOCKING INSPECTOR Plan of Treatment Health Maintenance Due Date [...] patient's age [place] [address] MEDICAID AETNA [facility] MEDICAID A[employer]NA [facility] [place] * Guarantor: VANESSA SANFORD Account Type Relation to Patient Date of Phone Billing Address Personal/Family [address] [place] [address] MEDICAID AETNA [facility] [place] * Guarantor: VANESSA SANFORD Account Type Relation to Patient Date of Phone Billing Address Personal/Family [address] MEDICAID [employer]NA [facility] [place]
--- NOTE | 2025-03-28 09:27 | ED_ITS ---
HPI - Back Pain/Injury General Chief Complaint: Back Pain/Injury Stated Complaint: 11wks , lower back pain, no bleeding Time Seen by Provider: 03/28/25 08:55 History of Present Illness HPI Narrative: 24-year-old morbidly obese female who is , currently 11 weeks prese nts to the ER complaining of low back pain that radiates into her right leg. States the pain began this morning. Is not taking any medications to alleviate her symptoms. Denies injury or trauma. Denies dysuria, urinary frequency urgency. States the pain is aggravated with ambulation. Denies saddle anesthesia, bowel or bladder deficits, or lower extremity weakness. Related Data Home Medications ?Medication ?Instructions ?Recorded ?Confirmed ?Last Taken ?Type albuterol sulfate 90 mcg/actuation 2 puff inhalation Q ID PRN Dyspnea 12/18/23 12/26/23 Unknown History aerosol inhaler Allergies Allergy/AdvReac Type Severity Reaction Status Date / Time latex Allergy Severe Hives Verified 03/28/25 08:55 coconut Allergy Other Verified 03/28/25 08:55 fluticasone (From Advair Allergy Difficulty Verified 03/28/25 08:55 Diskus) Breathing salmeterol (From Advair Allergy Difficulty Verified 03/28/25 08:55 Diskus) Breathing Review of Systems Review of Systems: All systems reviewed & are unremarkable except as noted in HPI and below PMFSH Past Medical History Medical History Healthy female adult History of asthma Surgical History Surgical History No pertinent past surgical history Family History Family History Other Cancer Diabetes mellitus Social History Social History Years smoked: 2 Smoking status: Former smoker Tobacco type: e-cigarettes/vaping Second hand tobacco smoke exposure: No Substance use: current Substance use type: marijuana Other substance usage details: every day Lack of Transportation: No Lack of Food: Never True Current Housing: I Have Housing Concerned About Future Housing: No Difficulty Paying Gas/Electric Bills: No Difficulty Paying for Meds: No Currently Unemployed: No Education: Don't Know Difficulty w/ Childcare or Family Care: No Living arrangements: with family Gender identity (if verbalized by the patient): Female Spiritual care concerns: No Exam Const: General: healthy appearing, alert and ill appearing Nutritional Appearance: well nourished and obese Orientation/consciousness: patient oriented x3 Limitations: no limitations HENMT: Head: normal to inspection Eyes: Conjunctivae: conjunctivae normal Pupils: Equal, round and reactive pupils present EOM: EOMs intact bilaterally Direct Ophthalmoscopy: no photophobia Neck: Neck: normal visual inspection Chest: Chest palpation & inspection: normal inspection of the chest Resp: Effort & Inspection: normal respiratory effort Cardio: Rate: regular rate Rhythm: regular rhythm Back/Spine/Pelvis: Back: no CVA tenderness Skin: General skin exam: normal color Wounds: no wounds Neuro: General: patient oriented x3, moves all extremities and CN's II-XI intact bilaterally Cranial nerves: Yes Nystagmus not present Speech: normal speech Gait exam (Neuro): Normal gait present Extrem: General: normal to inspection Other: Midline tenderness to lumbar spine, tenderness over the a right SI joint. Pain with right leg extension Psych: Mental Status: mental status grossly normal Affect: normal affect Attitude: cooperative Course Vital Signs Vital signs: Vital Signs Temperature 36.6 C 03/28/25 08:59 Pulse Rate 82 03/28/25 08:59 Respiratory Rate 17 03/28/25 08:59 Blood Pressure 155/81 H 03/28/25 08:59 Pulse Oximetry 100 03/28/25 08:59 Oxygen Delivery Room Air 03/28/25 08:59 Temperature 36.6 C 03/28/25 08:59 Pulse Rate 82 03/28/25 08:59 Respiratory Rate 17 03/28/25 08:59 Blood Pressure 155/81 H 03/28/25 08:59 Pulse Oximetry 100 03/28/25 08:59 Oxygen Delivery Room Air 03/28/25 08:59 MDM - Back Pain/Injury MDM Narrative Medical decision making narrative: 24-year-old morbidly obese female presented the ER with acute onset of right lower back pain radiated to her right leg. Patient is AG 5 P 4. Denies dysuria. Denies urine show no evidence of acute cystitis. Differential diagnosis includes sciatica, low back pain, vertebral fracture, acute cystitis. Exam was consistent with the sciatica. Will plan to discharge patient home with a lidocaine patch and muscle relaxer. Lab Data Labs: Lab Results 03/28/25 Range/Units 10:14 Urine Color Yellow (Yellow) Urine Appearance Cloudy H (Clear) Urine pH 7.5 (5.0-9.0) Ur Specific [place] 1.026 (1.001-1.035) Urine Protein 3+ H (Negative) mg/dL Urine Glucose (UA) Negative (Negative) mg/dL Urine Ketones Negative (Negative) mg/dL Ur Blood (Man) Trace (Negative) Urine Nitrate Negative (Negative) Urine Bilirubin Negative (Negative) Urine Urobilinogen 1.0 (<2.0) mg/dL Leukocyte Esterase Rfl Negative (Negative) TACHO/UL Urine RBC 11-20 H (0-2) /hpf Urine WBC 0-5 (0-3) /hpf Ur Squamous Epith Cells None seen (Few) /hpf Urine Bacteria None seen /hpf Urine Casts 0-2 Discharge Plan Discharge Clinical Impression: Lumbar radiculopathy Sciatica Qualifiers: Laterality: right Qualified Code(s): M54.31 - Sciatica, right side Patient Disposition: Home Condition: Stable Instructions: Antibiotic Form, Sciatica (ED), Acute Low Back Pain (ED) Patient Language: Citizen Of [place] Prescriptions: New lidocaine 5 % adhesive patch,medicated 1 patch topical DAILY Qty: 15 0RF Rx Instructions: leave on most painful area for up to 12 hrs cyclobenzaprine 10 mg tablet 10 mg PO TID Qty: 21 0RF No Action albuterol sulfate 90 mcg/actuation Hfa Aerosol Inhaler 2 puff INHALATION QID PRN (Reason: Dyspnea) hydrocodone-acetaminophen 5-325 mg tablet 1 tablet PO Q4H PRN (Reason: pain) Qty: 20 0RF ondansetron 4 mg tablet,disintegrating 4 mg PO Q6H PRN (Reason: nausea and vomiting) Qty: 10 0RF cephalexin 500 mg capsule 500 mg PO Q8H Qty: 12 0RF Follow-up/Referrals: PHYSICIAN,FREIGHT COORDINATOR [Primary Care Provider, Internal Medicine] Stand Alone Forms: Work/School Release IP Time of Disposition: 10:49
[2025-03-28] MEDS: ACETAMINOPHEN 500 MG TABLET 1000 MG PO (09:33)
[2025-03-28] MEDS: CYCLOBENZAPRINE HCL 10 MG TABLET PO (09:34)
--- OUTSIDE RECORDS SUMMARY | 2025-03-28 09:48 | XMS_ITS | Clinical Summary ---
Author Organization [facility] Address [address] [place] [address] Care Team Providers Care Mcat Tutor Name Role Phone Unavailable Primary Care Provider Unavailabl e Source Comments [facility],non-owned Affiliates and Associated Physician Practices is amultiple site organization consisting of ambulatory clinics and hospital sitesin [place], [place], [place] and [place]. This disclosure is being madepursuant to the Care Everywhere program and may not contain all information available regarding this patient. Last updated 18.[facility] [employer] Allergies Active Allergy Reactions Criticality Noted Date [...] on file Legal Sex Female 6:32 PM PRODUCTION LINE SOLDERER Gender Identity Not on file Sexual Orientation Not on file Last Filed Vital Signs Vital Sign Reading Time Taken Comments Blood Pressure 118/72 09/12/2020 11:55 AM PRODUCTION LINE SOLDERER Pulse 87 09/12/2020 11:55 AM PRODUCTION LINE SOLDERER Temperature 36.7 C (98 F) 09/12/2020 11:55 AM PRODUCTION LINE SOLDERER Respiratory Rate 16 09/12/2020 11:55 AM PRODUCTION LINE SOLDERER Oxygen Saturation 98% 09/12/2020 11:55 AM PRODUCTION LINE SOLDERER Inhaled Oxygen Concentration - - Weight 90.7 kg (200 lb) 09/12/2020 11:55 AM PRODUCTION LINE SOLDERER Height 162.6 cm (5' 4) 09/12/2020 11:55 AM PRODUCTION LINE SOLDERER Body Mass Index 34.33 09/12/2020 11:55 AM PRODUCTION LINE SOLDERER Plan of Treatment Health Maintenance Due Date [...] patient's age to complete [place] [address] MEDICAID AETNA [facility] MEDICAID A[employer]NA [facility] [place] * Guarantor: VANESSA SANFORD Account Type Relation to Patient Date of Phone Billing Address Personal/Family [address] [place] [address] MEDICAID AETNA [facility] [place] * Guarantor: VANESSA SANFORD Account Type Relation to Patient Date of Phone Billing Address Personal/Family [address] MEDICAID [employer]NA [facility] [place]
[2025-03-28 10:24] LABS: Add Urine Microscopic? YES; Appearance Urine Cloudy (Clear); Glucose Urine UA Negative (Negative); Leukocyte Esterase Ur Negative LEU/UL (Negative); Nitrate Urine Negative (Negative); Non Pathogenic Casts 0-2; Specific Grav Ur 1.026 (1.001-1.035)
[2025-03-28 11:09] VITALS: BP 136/88; PULSE 80; RESP 16; O2SAT 97
== END 2025-03-28 11:10 | disposition home or self-care (01) ==
PROVIDERS: Emergency Provider Nurse Practitioner Family
DX: O99.891 Other specified diseases and conditions complicating pregnancy (principal); M54.16 Radiculopathy, lumbar region; M54.41 Lumbago with sciatica, right side; O99.211 Obesity complicating pregnancy, first trimester; E66.01 Morbid (severe) obesity due to excess calories; O99.511 Diseases of the respiratory system complicating pregnancy, first trimester; J45.909 Unspecified asthma, uncomplicated; Z3A.11 11 weeks gestation of pregnancy; Z87.891 Personal history of nicotine dependence
CPT/HCPCS: 81001; 99283; A9270

== ENCOUNTER 2025-04-05 10:00 | Emergency (ER) | payer OTHER, SELFPAY ==
[2025-04-05 10:03] VITALS: PULSE 88; RESP 16; TEMP 36.5; O2SAT 100
--- OUTSIDE RECORDS SUMMARY | 2025-04-05 10:28 | XMS_ITS | Clinical Summary ---
Author Organization [facility] Address [address] [place] [address] Care Team Providers Care Valve Tester Name Role Phone Unavailable Primary Care Provider Unavailabl e Source Comments [facility],non-owned Affiliates and Associated Physician Practices is amultiple site organization consisting of ambulatory clinics and hospital sitesin [place], [place], [place] and [place]. This disclosure is being madepursuant to the Care Everywhere program and may not contain all information available regarding this patient. 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 BARREL DRILLER Gender Identity Not on file Sexual Orientation Not on file Last Filed Vital Signs Vital Sign Reading Time Taken Comments Blood Pressure 118/72 09/12/2020 11:55 AM BARREL DRILLER Pulse 87 09/12/2020 11:55 AM BARREL DRILLER Temperature 36.7 C (98 F) 09/12/2020 11:55 AM BARREL DRILLER Respiratory Rate 16 09/12/2020 11:55 AM BARREL DRILLER Oxygen Saturation 98% 09/12/2020 11:55 AM BARREL DRILLER Inhaled Oxygen Concentration - - Weight 90.7 kg (200 lb) 09/12/2020 11:55 AM BARREL DRILLER Height 162.6 cm (5' 4) 09/12/2020 11:55 AM BARREL DRILLER Body Mass Index 34.33 09/12/2020 11:55 AM BARREL DRILLER Plan of Treatment Health Maintenance Due Date [...] patient's age to complete [place] [address] MEDICAID AETNA [facility] MEDICAID [employer] [facility] [place] * Guarantor: VANESSA SANFORD Account Type Relation to Patient Date of Phone Billing Address Personal/Family [address] [place] [address] MEDICAID AETNA [facility] [place] * Guarantor: VANESSA SANFORD Account Type Relation to Patient Date of Phone Billing Address Personal/Family [address] MEDICAID A[employer]NA [facility] [place]
[2025-04-05 11:19] VITALS: BP 128/75; PULSE 81; RESP 14; TEMP 36.4; O2SAT 100
[2025-04-05 11:47] LABS: BEDSIDEPREGUCG Positive (Negative)
--- OUTSIDE RECORDS SUMMARY | 2025-04-05 11:57 | XMS_ITS | Clinical Summary ---
Author Organization [facility] Address [address] [place] [address] Care Team Providers Care Licensed Retail Supervisor Name Role Phone Unavailable Primary Care Provider Unavailabl e Source Comments [facility],non-owned Affiliates and Associated Physician Practices is amultiple site organization consisting of ambulatory clinics and hospital sitesin [place], [place], [place] and [place]. This disclosure is being madepursuant to the Care Everywhere program and may not contain all information available regarding this patient. 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 Gender Identity Not on file Sexual Orientation Not on file Last Filed Vital Signs Vital Sign Reading Time Taken Comments Blood Pressure 118/72 09/12/2020 11:55 AM BANKING ASSISTANT Pulse 87 09/12/2020 11:55 AM BANKING ASSISTANT Temperature 36.7 C (98 F) 09/12/2020 11:55 AM BANKING ASSISTANT Respiratory Rate 16 09/12/2020 11:55 AM BANKING ASSISTANT Oxygen Saturation 98% 09/12/2020 11:55 AM BANKING ASSISTANT Inhaled Oxygen Concentration - - Weight 90.7 kg (200 lb) 09/12/2020 11:55 AM BANKING ASSISTANT Height 162.6 cm (5' 4) 09/12/2020 11:55 AM BANKING ASSISTANT Body Mass Index 34.33 09/12/2020 11:55 AM BANKING ASSISTANT Plan of Treatment Health Maintenance Due Date [...] patient's age [place] [address] MEDICAID AETNA [facility] MEDICAID [employer] [facility] [place] * Guarantor: VANESSA SANFORD Account Type Relation to Patient Date of Phone Billing Address Personal/Family [address] [place] [address] MEDICAID AETNA [facility] [place] * Guarantor: VANESSA SANFORD Account Type Relation to Patient Date of Phone Billing Address Personal/Family [address] MEDICAID [employer] [facility] [place]
[2025-04-05] MEDS: LACTATED RINGERS 1,000 ML 999 ML IV CONT (11:59)
[2025-04-05 12:00] VITALS: BP 130/80; PULSE 78; RESP 16; O2SAT 100
[2025-04-05] MEDS: ONDANSETRON INJ 4 MG/2 ML VIAL IV PUSH (12:00)
[2025-04-05 12:02] LABS: Hematocrit 37.1 % (37.0-47.0); Hemoglobin 11.5 g/dL (12.0-15.0); Immature Granulocyte Percent A 0.3 % (0-0.5); Lymphocytes Absolute Auto 2.18 K/mm3 (0.9-3.2); Mean Corpuscular HGB Conc 31.0 g/dl (32-36); Mean Corpuscular Hemoglobin 24.5 pg (26-34); Mean Corpuscular Volume 79.1 fl (80-100); Nucleated Red Blood Cells Absolute Auto 0.000 K/mm3 (0.0-0.012); Nucleated Red Blood Cells Perc 0.0 % (0.0-0.2); Platelet Count Result 252 k/mm3 (150-375); Red Blood Count 4.69 M/mm3 (4.2-5.4); White Blood Count 11.6 K/mm3 (4.5-10.0)
[2025-04-05 12:15] LABS: Add Urine Microscopic? YES; Appearance Urine Cloudy (Clear); Glucose Urine UA Negative (Negative); Leukocyte Esterase Ur Negative LEU/UL (Negative); Need Manual Microscopic Reviewed; Nitrate Urine Negative (Negative); Non Pathogenic Casts 0-2; Specific Grav Ur 1.032 (1.001-1.035)
[2025-04-05 12:28] LABS: Alanine Aminotransferase 29 U/L (6-35); Albumin Level 3.9 g/dL (3.5-5.1); Alkaline Phosphatase 136 U/L (38-126); Anion Gap 8 mmol/L (4-12); Aspartate Amino Transferase 32 U/L (14-36); Bilirubin,Total 0.6 mg/dL (0.2-1.3); Blood Urea Nitrogen 7 mg/dL (7-17); Calcium 9.3 mg/dL (8.4-10.2); Carbon Dioxide 24 mmol/L (22-30); Chloride 104 mmol/L (98-107); Estimated CRCL calculation 183 ml/min; Estimated Glomerular Filt Rate > 60; Glucose 87 mg/dL (65-110); Lipase 61 U/L (23-300); Potassium 4.4 mmol/L (3.4-5.0); Sodium 136 mmol/L (137-145); Total Protein 7.8 g/dL (6.3-8.2)
--- NOTE | 2025-04-05 13:30 | ED.GENADULT ---
HPI - General Adult General Chief complaint: Nausea/Vomiting/Diarrhea Stated complaint: preg, n/v Time Seen by Provider: 04/05/25 11:26 Source: patient Mode of arrival: ambulatory Limitations: no limitations History of Present Illness HPI narrative: 24-year-old 4 para 3 about to 12 weeks of gestation here with a complains of nausea, vomiting for past few days however this morning while she was at work she felt extremely dizzy. She denied any abdominal pain or vaginal bleeding . Patient states that she has not seen OBGYN yet for this preg . Onset (ago): day(s) (2) Severity: moderate Relieving factors: none Exacerbating factors: none Associated symptoms: denies other symptoms Related Data Home Medications ?Medication ?Instructions ?Recorded ?Confirmed ?Last Taken ?Type albuterol sulfate 90 mcg/actuation 2 puff inhalation QID PRN Dyspnea 12/18/23 12/26/23 Unknown History aerosol inhaler Allergies Allergy/AdvReac Type Severity Reaction Status Date / Time latex Allergy Severe Hives Verified 04/05/25 11:47 coconut Allergy Other Verified 04/05/25 11:47 fluticasone (From Advair Allergy Difficulty Verified 04/05/25 11:47 Diskus) Breathing salmeterol (From Advair Allergy Difficulty Verified 04/05/25 11:47 Diskus) Breathing Review of Systems Review of Systems: All systems reviewed & are unremarkable except as noted in HPI and below Constitutional: Constitutional: Reports no additional constitutional complaints Eyes: Eyes: Reports no additional eye complaints ENT: Reports system reviewed and no additional complaints, except as documented Cardiovascular: Cardiovascular: Reports no additional cardiovascular complaints Respiratory: Respiratory: Reports no additional respiratory complaints Gastrointestinal: Gastrointestinal: Reports as per HPI Genitourinary: Genitourinary: Reports no additional female genitourinary complaints Musculoskeletal: Musculoskeletal: Reports no additional musculoskeletal complaints [facility] Past Medical History Medical History Healthy female adult History of asthma Surgical History Surgical History No pertinent past surgical history Family History Family History Other Cancer Diabetes mellitus Social History Social History Years smoked: 2 Smoking status: Former smoker Tobacco type: e-cigarettes/vaping Second hand tobacco smoke exposure: No Substance use: current Substance use type: marijuana Other substance usage details: every day Lack of Transportation: No Lack of Food: Never True Current Housing: I Have Housing Concerned About Future Housing: No Difficulty Paying Gas/Electric Bills: No Difficulty Paying for Meds: No Currently Unemployed: No Education: Don't Know Difficulty w/ Childcare or Family Care: No Living arrangements: with family Gender identity (if verbalized by the patient): Female Spiritual care concerns: No Exam Narrative: GENERAL: Well-appearing, well-nourished, and in no acute distress. HEAD: Normocephalic, atraumatic. EYES: PERRLA and EOMI. ENT: Nares clear, no rhinorrhea or epistaxis. Mucous membranes moist. NECK: Supple. CHEST: Clear to auscultation. No respiratory distress. HEART: Regular rate and rhythm. No murmur heard. Normal peripheral pulses. ABDOMEN: Soft, nontender, nondistended, normal active bowel sounds. EXTREMITIES: Normal range of motion. No edema. SKIN: Warm, dry, no rash. NEURO: No focal deficits. Alert and oriented x3. PSYCH: Normal mood and affect. Course Course Emergency Course: Patient feeling much better after IV fluids. Informed her about the lab work. She does feel comfortable going home with Chucky. Vital Signs Vital signs: Vital Signs Temperature 36.5 C 04/05/25 10:03 Pulse Rate 88 04/05/25 10:03 Respiratory Rate 16 04/05/25 10:03 Pulse Oximetry 100 04/05/25 10:03 Temperature 36.4 C 04/05/25 11:19 Pulse Rate 78 04/05/25 12:00 Respiratory Rate 16 04/05/25 12:00 Blood Pressure 130/80 04/05/25 12:00 Pulse Oximetry 100 04/05/25 12:00 Oxygen Delivery Room Air 04/05/25 11:19 Medical Decision Making Vital Signs Vital Signs: Vital Signs Temperature 36.5 C 04/05/25 10:03 Pulse Rate 88 04/05/25 10:03 Respiratory Rate 16 04/05/25 10:03 Pulse Oximetry 100 04/05/25 10:03 Temperature 36.4 C 04/05/25 11:19 Pulse Rate 78 04/05/25 12:00 Respiratory Rate 16 04/05/25 12:00 Blood Pressure 130/80 04/05/25 12:00 Pulse Oximetry 100 04/05/25 12:00 Oxygen Delivery Room Air 04/05/25 11:19 Lab Data 04/05/25 11:43 04/05/25 11:43 Labs: Lab Results 04/05/25 04/05/25 Range/Units 11:43 11:45 WBC 11.6 H (4.5-10.0) K/mm3 RBC 4.69 (4.2-5.4) M/mm3 Hgb 11.5 L (12.0-15.0) g/dL Hct 37.1 (37.0-47.0) % MCV 79.1 L (80-100) fl MCH 24.5 L (26-34) pg MCHC 31.0 L (32-36) g/dl RDW 16.6 H (11.5-14.5) % Plt Count 252 (150-375) k/mm3 MPV 10.7 H (7.4-10.4) fl Immature Gran % (Auto) 0.3 (0-0.5) % Neut % (Auto) 76.1 H (45.5-73.1) % Lymph % (Auto) 18.8 (18.3-44.2) % [place] % (Auto) 3.9 (2.6-8.5) % Eos % (Auto) 0.6 (0-4.4) % Baso % (Auto) 0.3 (0.2-1.2) % Lymph # (Auto) 2.18 (0.9-3.2) K/mm3 [place] # (Auto) 0.5 (0.1-0.6) K/mm3 Eos # (Auto) 0.1 (0-0.3) K/mm3 Baso # (Auto) 0.0 (0.0-0.1) K/mm3 Abs Immat Gran (auto) 0.03 (0.00-0.031) K/mm3 Absolute Neuts (auto) 8.8 H (1.3-6.7) K/mm3 Absolute Nucleated RBC 0.000 (0.0-0.012) K/mm3 Nucleated RBC % 0.0 (0.0-0.2) % Sodium 136 L (137-145) mmol/L Potassium 4.4 (3.4-5.0) mmol/L Chloride 104 (98-107) mmol/L Carbon Dioxide 24 (22-30) mmol/L Anion Gap 8 (4-12) mmol/L BUN 7 D (7-17) mg/dL Creatinine 0.55 L (0.7-1.0) mg/dL Estim Creat Clear Calc 183 ml/min Estimated GFR > 60 (59 - ) Glucose 87 (65-110) mg/dL Calcium 9.3 (8.4-10.2) mg/dL Total Bilirubin 0.6 (0.2-1.3) mg/dL AST 32 (14-36) U/L ALT 29 (6-35) U/L Alkaline Phosphatase 136 H (38-126) U/L Total Protein 7.8 (6.3-8.2) g/dL Albumin 3.9 (3.5-5.1) g/dL Lipase 61 (23-300) U/L Urine Color Dark yellow (Yellow) Urine Appearance Cloudy H (Clear) Urine pH 6.0 (5.0-9.0) Ur Specific [place] 1.032 (1.001-1.035) Urine Protein 3+ H (Negative) mg/dL Urine Glucose (UA) Negative (Negative) mg/dL Urine Ketones 3+ H (Negative) mg/dL Ur Blood (Man) 1+ H (Negative) Urine Nitrate Negative (Negative) Urine Bilirubin 1+ H (Negative) Urine Urobilinogen 1.0 (<2.0) mg/dL Add Ur Microanalysis Reviewed Leukocyte Esterase Rfl Negative (Negative) TACHO/UL Urine RBC 6-10 H (0-2) /hpf Urine WBC 0-5 (0-3) /hpf Ur Squamous Epith Cells Few (Few) /hpf Urine Bacteria 1+ H /hpf Urine Casts 0-2 POC Urine HCG, Qual Positive (Negative) Discharge Plan Discharge Clinical Impression: Hyperemesis gravidarum Patient Disposition: Home Condition: Stable Instructions: Hyperemesis Gravidarum (ED) Additional Instructions: Take Zofran as needed, drink more fluids as tolerated, follow with the for your OBGYN. Patient Language: Uzbek Prescriptions: New ondansetron 4 mg tablet,disintegrating 4 mg PO Q6-8H PRN (Reason: nausea and vomiting) Qty: 14 0RF No Action albuterol sulfate 90 mcg/actuation Hfa Aerosol Inhaler 2 puff INHALATION QID PRN (Reason: Dyspnea) hydrocodone-acetaminophen 5-325 mg tablet 1 tablet PO Q4H PRN (Reason: pain) Qty: 20 0RF ondansetron 4 mg tablet,disintegrating 4 mg PO Q6H PRN (Reason: nausea and vomiting) Qty: 10 0RF cephalexin 500 mg capsule 500 mg PO Q8H Qty: 12 0RF lidocaine 5 % adhesive patch,medicated 1 patch topical DAILY Qty: 15 0RF Rx Instructions: leave on most painful area for up to 12 hrs cyclobenzaprine 10 mg tablet 10 mg PO TID Qty: 21 0RF Follow-up/Referrals: PHYSICIAN,AMMUNITION ASSEMBLY I LABORER [Primary Care Provider, Internal Medicine] Blayne Cavanaugh MD [Physician, CATALYST RECOVERY OPERATOR] Time of Disposition: 13:32
[2025-04-05 13:40] VITALS: BP 111/69; PULSE 82; RESP 16; O2SAT 100
== END 2025-04-05 13:41 | disposition home or self-care (01) ==
PROVIDERS: Emergency Provider Family Medicine
DX: O21.0 Mild hyperemesis gravidarum (principal); Z3A.12 12 weeks gestation of pregnancy; J45.909 Unspecified asthma, uncomplicated; Z87.891 Personal history of nicotine dependence
CPT/HCPCS: 36415; 80053; 81001; 81025; 83690; 85025; 96361; 96374; 99284; J2405; J7120